=== PATIENT | male | born 1970 | race Caucasian/White ===

== ENCOUNTER → 2019-04-21 08:07 | Outpatient (CLI) | payer OTHER, SELFPAY | PROVIDERS: Visit Provider Orthopaedic Surgery | DX: M17.11 Unilateral primary osteoarthritis, right knee (principal); Z01.818 Encounter for other preprocedural examination; Z01.812 Encounter for preprocedural laboratory examination | CPT/HCPCS: 93005; 93010 ==

== ENCOUNTER 2019-05-02 11:38 | Inpatient (IN) | payer OTHER, SELFPAY ==
[2019-04-19 11:35] VITALS: BMI 40.1
[2019-04-24 15:10] VITALS: BMI 40.1
[2019-05-02] VITALS (13 sets, daily range): BP systolic 88–178; BP diastolic 40–108; PULSE 56–80; RESP 8–20; TEMP 36.2–37.6; O2SAT 95–100; BMI 40.1
--- NOTE | 2019-05-02 06:00 | DI.RAD.S_ITS ---
PROCEDURE: XR KNEE RT 1TO2V INDICATIONS: post op right TKA TECHNIQUE: 2 view(s) of the knee acquired. COMPARISON: None. FINDINGS: Bones: Patient is status post knee joint arthroplasty. Hardware components are in expected positions. Visualized bony structures are intact. Soft tissues: Overlying postoperative changes are noted. IMPRESSION: Post right total knee arthroplasty changes with anatomic right knee alignment. Dictated by: Gautam Mendoza M.D. on 05/02/2019 at 16:56 Approved by: Gautam Mendoza M.D. on 05/02/2019 at 16:56
--- NOTE | 2019-05-02 11:53 | PM.PREOP ---
Pre-operative Note Interval Note History & Physical reviewed/Exam performed by Physician: Yes Changes to H&P: No
--- NOTE | 2019-05-02 11:54 | P.OP_ITS ---
Operative Date/Time/Diagnoses Date of procedure: 05/02/19 Time of procedure: 15:08 Pre-op diagnosis: Severe right knee osteoarthritis Status post right knee ACL reconstruction Post-op diagnosis: same Procedure & Clinicians Procedure: Right total knee arthroplasty Hardware removal right knee Same procedure as scheduled: Yes Indications: The patient presents today for total knee arthroplasty after failure of conservative treatment. The nature of the procedure including the risks and benefits, alternatives, postoperative course and expected outcome were discussed and all questions answered. Consent was obtained. Operative site confirmed and marked. Surgeon: Gonsalo Cole Psychosocial Rehabilitation Counselor: Sai Rojo Anesthesia Type: Spinal and Local Operative Notes Closure Type: primary Specimen(s): none sent Prosthetic devices, grafts, tissues, transplants, or devices: Schmidt [employer] Nephew Lynnette BCS: 7 femoral component, 6 tibial component, 9 mm BCS polyethylene tray and 35 x 9 mm round patella Applied: implant(s) Estimated Blood Loss (mL): 75 Blood products transfused: none Tourniquet time (min): 40 Procedure in detail: The patient was taken to the operative suite and placed under spinal anesthesia. The patient was given prophylactic antibiotics prior to surgery. The patient was also given tranexamic acid, 1 g, just prior to surgery for postoperative hemostasis. The lateral knee was prepped and the joint injected with 20 mL of 1% Lidocaine with epinephrine. The knee was then prepped and draped in usual sterile fashion. The leg was exsanguinated with an Esmarch dressing and the tourniquet raised to 250 torr. A 15 cm anterior incision was made incorporating the previous ACL incision. Next a medial trivector arthrotomy was made. The extensor mechanism was marked to ensure accurate repair. Initial exposing dissection was carried out medially and laterally. The tibial interference screw was prominent and was removed. The knee was then extended and the patellar thickness was measured and a cut made removing approximately 9 mm of bone. The patella was then sized and drilled. Some excess lateral bone was excised and the patellofemoral ligament released. The knee was then flexed and the intramedullary femoral guide piotr placed. The distal femoral cut was made in 6 ? of valgus at the + 0 position. The extra medullary tibial alignment piotr was then placed along the anatomic axis of the tibia approximating the normal slope. The guide was set to remove approximately 6-7 mm from the less affected [lateral] side. The proximal tibial cut was then made with an oscillating saw. Flexion and extension gaps were checked. Another 2 mm was resected from the tibia. The femoral size was measured and the appropriate cutting block was then placed and the anterior, posterior and sharla mfer cuts made. All meniscus and bony debris was then removed. Flexion extension gaps were checked. The knee was mildly tight laterally. The lateral capsule was released using a pie crust technique with a 15 blade.. The soft tissues were then injected with a combination of 20 mL of half percent Marcaine with epinephrine and 20 mL of Exparel. The trial components were then placed. The knee went into full extension and flexion beyond 120?. There was excellent medial- lateral balance throughout motion. Patellar tracking was excellent. The trial components were removed and the knee was cleansed with Pulsavac irrigation and dried. The final components were cemented in with high viscosity vacuum mixed bone cement with antibiotics. The knee was held in extension and the patellar clamp until the cement had adequately cured. The knee was irrigated and inspected for any further debris. The knee was then irrigated with dilute Betadine solution. The extensor mechanism was closed with 5 interrupted #1 Vicryl sutures in 90 degrees of flexion. The joint was then injected with a combination of 1 g of tranexamic acid and 20 mL of quarter percent Marcaine with epinephrine. The subcutaneous tissue was closed with 2-0 Vicryl. The skin was closed with kenya and surgical adhesive. An Aquacell dressing and Juventino wrap were then applied. The patient tolerated the procedure well and was returned to recovery room in good condition. Complications: none Condition: stable Disposition: PACU Plan for aftercare: [facility] protocol for total knee arthroplasty.
[2019-05-02] MEDS: LACTATED RINGERS 1,000 ML 42 ML IV ×2 (12:08→13:53)
[2019-05-02] MEDS: CELECOXIB 200 MG CAPSULE PO (12:33)
[2019-05-02] MEDS: PREGABALIN 75 MG CAPSULE PO (12:33)
[2019-05-02] MEDS: ACETAMINOPHEN 325 MG TABLET 975 MG PO ×3 (12:33→20:16)
--- NOTE | 2019-05-02 12:34 | SUR.PREOP ---
Called pharmacy ([facility]) to check regarding melocam allergy and celebrex order; He deferred to the surgeon. Surgeon ordered to give medication.
[2019-05-02] MEDS: CEFAZOLIN 2 GM/100 ML FROZ.PIGGY IV ×2 (13:06→20:12)
[2019-05-02] MEDS: TRANEXAMIC ACID 1,000 MG VIAL 2000 MG INJ ×2 (13:25→13:55)
--- NOTE | 2019-05-02 13:48 | SUR.OPER ---
Supine on padded OR bed. Pillow under head, arms secured on padded armboards <90 degree abduction. Safety belt across torso. Non-operative leg secured with tape over blanket over lower leg. Operative leg secured in DeMayo/Gómez positioner. Foam padded brace at thigh of operative leg.
[2019-05-02] MEDS: BUPIVACAINE LIPOSOME 266 MG/20 ML VIAL INJ (13:55)
[2019-05-02] MEDS: BUPIVACAINE 0.25% W/ EPI 30 ML VIAL 60 ML INJ (13:56)
[2019-05-02] MEDS: POVIDONE-IODINE 15 ML, SODIUM CHLORIDE 0.9% 250 ML TOP (13:56)
[2019-05-02] MEDS: LIDOCAINE 1% W/EPI INJ 20 ML INJ (13:57)
[2019-05-02] MEDS: LACTATED RINGERS 1,000 ML 125 ML IV (16:30)
[2019-05-02] MEDS: HYDROMORPHONE 0.5 MG INJ IV ×5 (16:35→23:04)
[2019-05-02] MEDS: OXYCODONE IR 5 MG TABLET PO (16:40)
[2019-05-02] MEDS: CYCLOBENZAPRINE 10 MG TABLET PO ×2 (17:00→20:17)
[2019-05-02] MEDS: OXYCODONE IR 10 MG TABLET PO ×2 (17:40→20:05)
[2019-05-02] MEDS: ASPIRIN EC 81 MG TABLET PO (20:17)
[2019-05-02] MEDS: diazePAM 5 MG TABLET PO (23:00)
--- NOTE | 2019-05-03 00:06 | PC.NURSE ---
1630- pt arrived to room 221 from PACU vis bed. A/O x 3 , Right knee aquacell/kraig wrap CDI, ice pack to knee and elevated. Pain 10/10 medicated with dilaudid 0.5mg IVP and percolone 5mg PO. 100%RA, LS clear denies SOB. BT+ denies nausea. LFA LR @ 125 infusing. Pt reports pain meds are not enough and rates pain 9/10. dr Tilley called, new orders oxycodone 10mg one time now and Q-3hr PRN, Vistaril Q-6hr PRN. Girlfriend Candy rooming in. 173- dilaudid 0.5mg IV, oxycodone 10mg PO, and Flexaril 10mg given for pain 8-9/10. 1829- dilaudid 0.5mg IV given for pain 9/10. 1844- zofran given for nausea 1944- Oxycodone 10mg PO given for pain 8/10. 2019- dilaudid 0.5mg given for pain 8/10. called Dr. Tilley again, informed of uncontrolled pain and HTN, Pt BP remaining in the 160's-170's/90's-100's. Orders to continue monitor BP, and orders for Oxycontin 10mg BID, and Valium 5mg PO for spasms and anxiety. Using urinal indep.
[2019-05-03] MEDS: OXYCODONE IR 10 MG TABLET PO ×7 (00:26→23:59)
[2019-05-03] MEDS: LACTATED RINGERS 1,000 ML 125 ML IV (00:27)
--- NOTE | 2019-05-03 01:00 | PC.NURSE ---
Assumed care of pt at 2300. Pt resting in bed. At 2330 Pt reports pain level decreased to 5/10. No oxycontin 10 mg available in entire hospital. Oxycodone IR given at 0020. Pt agreeable to plan of assessing pain level frequently; giving oral Oxycodone IR q 3 hrs prn and keep IV dilaudid for break-thru pain. CPOX remains on to monitor sats. Sats 97% RA. Drsg c/d/i. Legs elevated; Ice packs to knee. Refused SCD's. CMS+. Using urinal to void. IVF to piv. Denies nausea. BP remains elevated. Per evening shift RN, curtains and draperies salesperson provider notified of elevated BP with no new orders. Significant other rooming in sleeping on sofa. Bed alarm on. Pt verbalized he will call for needs.
[2019-05-03 03:06] VITALS: BP 148/83; PULSE 71; RESP 18; TEMP 37.2; O2SAT 98
[2019-05-03] MEDS: CEFAZOLIN 2 GM/100 ML FROZ.PIGGY IV (05:35)
[2019-05-03] MEDS: HYDROMORPHONE 0.5 MG INJ IV ×3 (07:44→16:35)
--- NOTE | 2019-05-03 07:44 | PM.PNPO.1 ---
Subjective Date Patient Seen: 05/03/19 Time Patient Seen: 07:44 Interval history: Pain has been severe over night. Denies fever chills. No nausea vomiting. Has not been out of bed to use the bathroom. He has been able to urinate using the bedside urinal. Exam Vital Signs (past 8 hours): - 05/02/19 23:50 05/03/19 03:06 Temperature 99.6 F 98.9 F Pulse Rate 80 71 Respiratory Rate 18 18 Blood Pressure 157/102 H 148/83 H Pulse Oximetry 95 98 Fraction of Inspired Oxygen 21 Oxygen Delivery Method Room Air Oxygen Flow Rate 0 Narrative Exam Narrative: 48-year-old male resting comfortably in bed in no apparent distress. Dressing is clean, dry and intact. Right lower extremity is warm and dry. Motor function is intact distally. Sensation grossly intact to light touch. Assessment & Plan Post-op Postoperative Procedures Operation Date: 05/02/19 14:00 Actual Procedures Side Surgeon p Total Knee Arthroplasty with hardware removal Right Gonsalo Cole MD Patient progressing as expected status post right total knee arthroplasty with hardware removal. Mobilize with physical therapy. Continue work on pain control. Possible discharge home later today likely tomorrow. Quality VTE Deep Vein Thrombosis/Pulmonary Embolism Present on Admission: No
[2019-05-03 08:00] VITALS: BP 141/94; PULSE 70; RESP 16; TEMP 36.8; O2SAT 96
[2019-05-03] MEDS: DICLOFENAC 50 MG DR TABLET 100 MG PO (08:21)
[2019-05-03] MEDS: ASPIRIN EC 81 MG TABLET PO ×2 (08:21→20:22)
[2019-05-03] MEDS: CYCLOBENZAPRINE 10 MG TABLET PO ×2 (08:21→15:09)
[2019-05-03] MEDS: ACETAMINOPHEN 325 MG TABLET 975 MG PO ×3 (08:21→20:21)
--- NOTE | 2019-05-03 08:52 | CM.IDA ---
Addendum entered by NITZA Raygoza 05/03/19 08:59: Of Note: Pt is 5'11 292 pounds, notes indicate pt was much heavier w/140# weight loss Original Note: Initial DCP Assessment Note: Pt is a 48 yo male, resident of [place], now POD#1 from Rt knee surgery w/ Dr Coel. PCP: Unknown Payer: L+I Reviewed chart. Therapy eval pending today, though pt has prepared for return home to parent's house for one week w/family to assist as needed. According to review, pt will likely require an addtl. night in the hospital for pain management and skilled therapies. No needs expected from DC planning team although will remain available in case this changes. NITZA Raygoza Discharge Planning/Care Management CM Discharge Assessment Start: 05/03/19 08:49 Freq: Status: Active Protocol: Document 05/03/19 08:49 VALDEZ (Rec: 05/03/19 08:52 VALDEZ [email or web address]) Discharge Planning Assessment Assigned Student Ministry Pastor NITZA Fuentes DPOA/Assigned Designee Name Candy Darrel, partner Contact Information [phone] Advance Directives? No History Provided By Patient Family Member Medical Record Prior Living Arrangements RV Household Members significant other Type of transporation used prior to Drives own vehicle admit Independent with ADL's Yes Is patient alert and oriented? Yes Barriers to Discharge No Discharge Plan Home Transportation Arrangement Family Referrals Initiated None needed Review Status In Process
[2019-05-03 09:04] LABS: Hematocrit 40.4 % (41-53); Hemoglobin 13.7 g/dL (13.5-17.5)
--- NOTE | 2019-05-03 09:37 | PT.IIE ---
Addendum entered and electronically signed by Maricarmen Park PT 05/03/19 10:45: correction for assessment. Original Note: Current Diagnoses Unilateral primary osteoarthritis, right knee (05/02/19) Surgery Performed Operation Date: 05/02/19 14:00 Actual Procedures p Total Knee Arthroplasty with hardware removal(Right) - Gonsalo Cole MD Surgical History (Last Updated 04/24/19 @ 16:13 by Misti Mcnulty, RN) History of esophagogastroduodenoscopy (EGD) (Acute) S/P ACL reconstruction (Acute ~1991) Medical History (Last Updated 04/24/19 @ 16:13 by Misti Mcnulty, RN) Colitis (Acute) Diverticulosis (Acute) Hip pain, left (Acute) History of esophageal reflux (Acute) Hypertension (Acute) Osteoarthritis of knee (Acute) Right knee pain (Acute) Physical Therapy Inpatient Evaluation/Re-Eval M1 PT/OT-IP Prior Functional Status Start: 05/03/19 09:14 Freq: NEEDED Status: Active Protocol: Document 05/03/19 08:30 (Rec: 05/03/19 09:37 [email or web address]) Medical Review Prior Functional Status Medical History Reviewed Yes Diet/Fluid Consistency Regular Communication No deficits noted. Able to make needs known Mobility and Gait Independent for all mobility at home and community without using AD. States increased pain for prolonged walking, standing and stair climbing. Used step to pattern to climb stairs Activities of Daily Living and IADL's Independent with all ADLs and IADLs. Social History Household Members significant other Living Arrangements RV Number of Stairs To Enter/Railing? 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 But they will move to parent's house as long as patient needed. Pt stated their house is safety proof since his mother in law had knee and hip replacement. Pt had ACLr approx 20 years ago and reports he has significant pronated feet with foot turned out. M2 PT-IP Current Condition Start: 05/03/19 09:14 Freq: NEEDED Status: Active Protocol: Document 05/03/19 08:30 HH (Rec: 05/03/19 09:37 [email or web address]) Physical Therapy Current Condition Current Condition Evaluation Date 05/03/19 Treatment Diagnosis RTKA, difficulty in walking Onset Date 05/02/19 Weight Bearing Status Weight Bearing Status Weight Bear as Tolerated M3 PT-IP Subjective Start: 05/03/19 09:14 Freq: NEEDED Status: Active Protocol: Document 05/03/19 08:30 HH (Rec: 05/03/19 09:37 [email or web address]) Subjective Physical Therapy Visit Type Type Initial Evaluation Visit Start Time 08:30 Visit Stop Time 09:05 Total Visit Minutes 35 Notes pt's girlfriend at bedside. Per RN, pt has been using urinal for toileting due to severe pain reported. Elevated BP 160s/90s also noted since sx. Number of SPECIAL AGENT [employer] Visits 0 Physical Therapy Visit Comments Patient Comments I want to walk and use the bathroom. Patient Goals To return home with his girlfriend Therapy Pain Assessment Pain When Pain Assessed During Mobility Pain Present Pain Present Pain Reported Location right knee Intensity 7 Scale Used Numeric (1 - 10) Description Acute Pain Behaviors Facial Grimacing Pain Management Techniques Apply Cold Elevation Modification of Treatment Re-positioning Timing of Activity with Medications M4 PT-IP Mobility and Gait Start: 05/03/19 09:14 Freq: NEEDED Status: Active Protocol: Document 05/03/19 08:30 HH (Rec: 05/03/19 09:37 [email or web address]) PT-Bed Mobility Assessment Rolling Type of Rolling Roll to Right Level of Assist Standby Assistance Supine to Sit Supine to Sit Standby Assistance Scooting Scooting to Edge of Bed Standby Assistance PT-Transfer Assessment Sit to and From Stand Sit to and from Stand Minimal Assistance Use of Upper Extremities Equipment Transfer Assistive Device Gait Belt Orthotic/Prosthetic Devices or Brace: No Transfers Transfer Destination Bed Chair Toilet Transfer Technique Stand Step Pivot Transfer Ability Level of Assist Contact Guard Assistance Use of Upper Extremities Comments Mobility Comments BP ramains 140s/80s pre and post mobility. Pt was able to use UEs to lift his RLE to sit at EOB on R side. He overall Required min A for sit to stand, chair transfer. He was able to stand with LLE only for toileting. Cues needed for hand placement on FWW/ chair armrests during transfers. Pt primarily WB through RLE during standing and transfer due to significant pain on L knee. Gait Assessment Gait Gait Assistance Required: Contact Guard Assist Distance (Feet) 35 Able to Maintain Weight Bearing Status Yes During Gait Assistive Devices Assistive Device Gait Belt Front Wheeled Walker Orthotic/Prosthetic Devices or Brace: No Gait Deviations General Gait Pattern Antalgic Decreased Stride Length Decreased Feet Clearance Step-to Gait Wide Based Gait Factors Limiting Gait Function Factors Limiting Gait Function Decreased Activity Tolerance Decreased Strength Limited Range of Motion Pain Poor Balance Poor Safety Awareness Comments Gait Comments Pt amb from EOB to bathroom then out to hallway and returned to bedside chair with FWW CGA. Pt initially WB ~ 20 -40% only on RLE and primarily used B UEs for support for the first 15 feet due to increased pain. But his pain reduced after who was able to increase WB through R knee, R foot clearance and gait speed. Pt states he was able to reach 50-60% WB towards the end of session. Stair Climbing Assessment Comments Stair Climbing Comments did not attempt due to pain PT-Balance Assessment Sitting Balance and Reactions Static Sitting Balance Ability Normal Dynamic Sitting Balance Ability Normal Standing Balance and Reactions Static Standing Balance Ability Good Dynamic Standing Balance Ability Good Device Used FWW M5 PT-IP Objective Assessments Start: 05/03/19 09:14 Freq: NEEDED Status: Active Protocol: Document 05/03/19 08:30 (Rec: 05/03/19 09:37 [email or web address]) Orientation Orientation/Cognition Level of Alertness Alert Orientation Name Age Birthday Month Date Year Day of Week Place Situation Language Function Ability No Deficits Noted Safety Awareness Understands Safety Issues Memory Description No Deficits Noted Gross Range of Motion Upper Extremity ROM Assessment Within Functional Limits Lower Extremity ROM Assessment Right Impaired Impairments 15- 80 degrees AROM Strength Upper Extremity Strength Assessment Within Functional Limits Lower Extremity Strength Assessment Right Impaired Knee 3/5 Coordination Assessment Gross Coordination Gross Coordination WNL Sensation Assessment Sensation Gross Sensation Right LE Impaired Light Touch Impaired Proprioception (Position) Impaired Sensation Description Tingling Pain Muscle Tone Muscle Tone WNL Yes Other Assessments Other Other Assessments Pt has severe B pronated feet with feet return checker which increases mechanical pressure on medial compartment of B knees. M6 PT-IP Treatment Start: 05/03/19 09:14 Freq: NEEDED Status: Active Protocol: Document 05/03/19 08:30 HH (Rec: 05/03/19 09:37 [email or web address]) Physical Therapy Treatment Exercises Exercises Gluteal Sets Quad Sets Heel Slides Education Education Provided Precautions Weight Bearing Status Post-Op Packet Safety Other Treatments Other Treatment Performed standing R TKE with FWW M7 PT-IP Assessment and Plan Start: 05/03/19 09:14 Freq: NEEDED Status: Active Protocol: Document 05/03/19 08:30 HH (Rec: 05/03/19 09:37 [email or web address]) PT Summary Assessment and Plan Potential Rehabilitation Potential Excellent Status of Condition at Evaluation Stable Summary Impairments Pain ROM Strength Balance Bed Mobility Transfers Gait Activity Tolerance Assessment Summary Pt is low complexity with POD #2 R TKA. Pt currently needs min A for sit to stand and overall transfers due to increased pain significantly during WB activities on RLE. Pt states he could WB on his R knee approx 50-60 % at this point and primarily uses B UEs for support on FWW. Pt currently is not safe to go home yet until his pain gets more controlled and able to clear rehab goals. Recommended his girlfriend to bring in FWW/ QC from home for adjustment prior to d/c. Goals Bed Mobility Goal Independent Transfer Goal Independent Front Wheeled Walker Gait Goal Independent Front Wheel Walker Gait Distance 200 Other Goals climb 1 step without railings Days to Meet Goals 5 Frequency of Treatment Frequency Of Treatment Twice a Day Treatment Plan Physical Therapy Treatment Plan Bed Mobility Training Transfer Training Gait Training Therapeutic Exercise Balance Retraining Post Op Education Discharge Planning Hot or Cold Pack Neuromuscular Re-ed Other Recommendations and Next Treatment gait training as lo Focus postural education with R TKE step climbing if possible Recommendations To Nursing Amount of Assist Needed 1 Person Assist Discharge Recommendations PT Discharge Recommendations Home with Assistance Outpatient PT
--- NOTE | 2019-05-03 10:02 | PC.NURSE ---
Patient in a lot of pain again at this time, tearful, laying in bed. SENIOR TECHNICAL SUPPORT ENGINEER had assisted with new ice packs and repositioning after therapy. Patient had refused IV and requested it was removed during PT session as it was in his wrist it has to come out, I am not able to use the walker without it poking and pinching. Patient now refuses replacement of IV in new spot, encouraged patient to keep me updated if he changes his mind. Call light within reach.
[2019-05-03] MEDS: OXYCODONE ER 10 MG TAB PO ×2 (10:25→20:27)
--- NOTE | 2019-05-03 10:47 | PT.IIE ---
Current Diagnoses Unilateral primary osteoarthritis, right knee (05/02/19) Surgery Performed Operation Date: 05/02/19 14:00 Actual Procedures p Total Knee Arthroplasty with hardware removal(Right) - Gonsalo Cole MD Surgical History (Last Updated 04/24/19 @ 16:13 by Misti Mcnulty, RN) History of esophagogastroduodenoscopy (EGD) (Acute) S/P ACL reconstruction (Acute ~1991) Medical History (Last Updated 04/24/19 @ 16:13 by Misti Mcnulty RN) Colitis (Acute) Diverticulosis (Acute) Hip pain, left (Acute) History of esophageal reflux (Acute) Hypertension (Acute) Osteoarthritis of knee (Acute) Right knee pain (Acute) Physical Therapy Inpatient Evaluation/Re-Eval M1 PT/OT-IP Prior Functional Status Start: 05/03/19 09:14 Freq: NEEDED Status: Active Protocol: Document 05/03/19 08:30 HH (Rec: 05/03/19 09:37 [email or web address]) Medical Review Prior Functional Status Medical History Reviewed Yes Diet/Fluid Consistency Regular Communication No deficits noted. Able to make needs known Mobility and Gait Independent for all mobility at home and community without using AD. States increased pain for prolonged walking, standing and stair climbing. Used step to pattern to climb stairs Activities of Daily Living and IADL's Independent with all ADLs and IADLs. Social History Household Members significant other Living Arrangements RV Number of Stairs To Enter/Railing? 4 PANFILO with railings pt has prepared for return home to girlfriend's parent's house for one week or more w/ family to assist as needed, 1STE Home Environment High Toilet Walk in Shower Home Equipment Front Wheel Walker Quad Cane Shower Seat with Backrest Hand Held Shower Grab Bars In Shower Employment Status Application Spec Employed Additional Social History Comment Pt lives with his girlfriend in a RV prior to sx. But they will move to parent's house as long as patient needed. Pt stated their house is safety proof since his mother in law had knee and hip replacement. Pt had ACLr approx 20 years ago and reports he has significant pronated feet with foot turned out. M2 PT-IP Current Condition Start: 05/03/19 09:14 Freq: NEEDED Status: Active Protocol: Document 05/03/19 08:30 HH (Rec: 05/03/19 09:37 [email or web address]) Physical Therapy Current Condition Current Condition Evaluation Date 05/03/19 Treatment Diagnosis RTKA, difficulty in walking Onset Date 05/02/19 Weight Bearing Status Weight Bearing Status Weight Bear as Tolerated M3 PT-IP Subjective Start: 05/03/19 09:14 Freq: NEEDED Status: Active Protocol: Document 05/03/19 08:30 HH (Rec: 05/03/19 09:37 [email or web address]) Subjective Physical Therapy Visit Type Type Initial Evaluation Visit Start Time 08:30 Visit Stop Time 09:05 Total Visit Minutes 35 Notes pt's girlfriend at bedside. Per RN, pt has been using urinal for toileting due to severe pain reported. Elevated BP 160s/90s also noted since sx. 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 Patient Goals To return home with his girlfriend Therapy Pain Assessment Pain When Pain Assessed During Mobility Pain Present Pain Present Pain Reported Location right knee Intensity 7 Scale Used Numeric (1 - 10) Description Acute Pain Behaviors Facial Grimacing Pain Management Techniques Apply Cold Elevation Modification of Treatment Re-positioning Timing of Activity with Medications M4 PT-IP Mobility and Gait Start: 05/03/19 09:14 Freq: NEEDED Status: Active Protocol: Document 05/03/19 08:30 HH (Rec: 05/03/19 09:37 [email or web address]) PT-Bed Mobility Assessment Rolling Type of Rolling Roll to Right Level of Assist Standby Assistance Supine to Sit Supine to Sit Standby Assistance Scooting Scooting to Edge of Bed Standby Assistance PT-Transfer Assessment Sit to and From Stand Sit to and from Stand Minimal Assistance Use of Upper Extremities Equipment Transfer Assistive Device Gait Belt Orthotic/Prosthetic Devices or Brace: No Transfers Transfer Destination Bed Chair Toilet Transfer Technique Stand Step Pivot Transfer Ability Level of Assist Contact Guard Assistance Use of Upper Extremities Comments Mobility Comments BP ramains 140s/80s pre and post mobility. Pt was able to use UEs to lift his RLE to sit at EOB on R side. He overall Required min A for sit to stand, chair transfer. He was able to stand with LLE only for toileting. Cues needed for hand placement on FWW/ chair armrests during transfers. Pt primarily WB through RLE during standing and transfer due to significant pain on L knee. Gait Assessment Gait Gait Assistance Required: Contact Guard Assist Distance (Feet) 35 Able to Maintain Weight Bearing Status Yes During Gait Assistive Devices Assistive Device Gait Belt Front Wheeled Walker Orthotic/Prosthetic Devices or Brace: No Gait Deviations General Gait Pattern Antalgic Decreased Stride Length Decreased Feet Clearance Step-to Gait Wide Based Gait Factors Limiting Gait Function Factors Limiting Gait Function Decreased Activity Tolerance Decreased Strength Limited Range of Motion Pain Poor Balance Poor Safety Awareness Comments Gait Comments Pt amb from EOB to bathroom then out to hallway and returned to bedside chair with FWW CGA. Pt initially WB ~ 20 -40% only on RLE and primarily used B UEs for support for the first 15 feet due to increased pain. But his pain reduced after who was able to increase WB through R knee, R foot clearance and gait speed. Pt states he was able to reach 50-60% WB towards the end of session. Pt also had refused IV and requested it was removed by RN during PT session as it was in his wrist it has to come out, I am not able to use the walker without it poking and pinching . Stair Climbing Assessment Comments Stair Climbing Comments did not attempt due to pain PT-Balance Assessment Sitting Balance and Reactions Static Sitting Balance Ability Normal Dynamic Sitting Balance Ability Normal Standing Balance and Reactions Static Standing Balance Ability Good Dynamic Standing Balance Ability Good Device Used FWW M5 PT-IP Objective Assessments Start: 05/03/19 09:14 Freq: NEEDED Status: Active Protocol: Document 05/03/19 08:30 (Rec: 05/03/19 09:37 [email or web address]) Orientation Orientation/Cognition Level of Alertness Alert Orientation Name Age Birthday Month Date Year Day of Week Place Situation Language Function Ability No Deficits Noted Safety Awareness Understands Safety Issues Memory Description No Deficits Noted Gross Range of Motion Upper Extremity ROM Assessment Within Functional Limits Lower Extremity ROM Assessment Right Impaired Impairments 15- 80 degrees AROM Strength Upper Extremity Strength Assessment Within Functional Limits Lower Extremity Strength Assessment Right Impaired Knee 3/5 Coordination Assessment Gross Coordination Gross Coordination WNL Sensation Assessment Sensation Gross Sensation Right LE Impaired Light Touch Impaired Proprioception (Position) Impaired Sensation Description Tingling Pain Muscle Tone Muscle Tone WNL Yes Other Assessments Other Other Assessments Pt has severe B pronated feet 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 M6 PT-IP Treatment Start: 05/03/19 09:14 Freq: NEEDED Status: Active Protocol: Document 05/03/19 08:30 HH (Rec: 05/03/19 09:37 HH [email or web address]) Physical Therapy Treatment Exercises Exercises Gluteal Sets Quad Sets Heel Slides Education Education Provided Precautions Weight Bearing Status Post-Op Packet Safety Other Treatments Other Treatment Performed standing R TKE with FWW M7 PT-IP Assessment and Plan Start: 05/03/19 09:14 Freq: NEEDED Status: Active Protocol: Document 05/03/19 08:30 HH (Rec: 05/03/19 09:37 HH [email or web address]) PT Summary Assessment and Plan Potential Rehabilitation Potential Excellent Status of Condition at Evaluation Stable Summary Impairments Pain ROM Strength Balance Bed Mobility Transfers Gait Activity Tolerance Assessment Summary Pt is low complexity with POD #2 R TKA. Pt currently needs min A for sit to stand and overall transfers due to increased pain during WB activties on RLE. Pt states he could WB on his R knee approx 50-60 % at this point and primarily uses B UEs for support on FWW. Pt also had refused IV and requested it was removed by RN during PT session as it was in his wrist it has to come out, I am not able to use the walker without it poking and pinching . In conclusion, Pt currently is not safe to go home yet until his pain gets more controlled and able to clear rehab goals. Recommended his girlfriend to bring in FWW/ QC from home for adjustment prior to d/c. Goals Bed Mobility Goal Independent Transfer Goal Independent Front Wheeled Walker Gait Goal Independent Front Wheel Walker Gait Distance 200 Other Goals climb 1 step without railings Days to Meet Goals 5 Frequency of Treatment Frequency Of Treatment Twice a Day Treatment Plan Physical Therapy Treatment Plan Bed Mobility Training Transfer Training Gait Training Therapeutic Exercise Balance Retraining Post Op Education Discharge Planning Hot or Cold Pack Neuromuscular Re-ed Other Recommendations and Next Treatment gait training as lo Focus postural education with R TKE step climbing if possible Recommendations To Nursing Amount of Assist Needed 1 Person Assist Discharge Recommendations PT Discharge Recommendations Home with Assistance Outpatient PT
[2019-05-03 12:37] VITALS: BP 162/98; PULSE 85; RESP 16; TEMP 36.2; O2SAT 98
[2019-05-03 15:20] VITALS: BP 133/69; PULSE 84; RESP 18; TEMP 36.8; O2SAT 95
--- NOTE | 2019-05-03 15:40 | PT.IPTN ---
Current Diagnoses Unilateral primary osteoarthritis, right knee (05/02/19) Surgery Performed Operation Date: 05/02/19 14:00 Actual Procedures p Total Knee Arthroplasty with hardware removal(Right) - Gonsalo Cole MD Physical Therapy Treatment Note M2 PT-IP Current Condition Start: 05/03/19 09:14 Freq: NEEDED Status: Active Protocol: Document 05/03/19 08:30 HH (Rec: 05/03/19 09:37 HH [email or web address]) Physical Therapy Current Condition Current Condition Evaluation Date 05/03/19 Treatment Diagnosis RTKA, difficulty in walking Onset Date 05/02/19 Weight Bearing Status Weight Bearing Status Weight Bear as Tolerated M3 PT-IP Subjective Start: 05/03/19 09:14 Freq: NEEDED Status: Active Protocol: Document 05/03/19 15:40 GGD (Rec: 05/03/19 17:05 GGD [id number]) Subjective Physical Therapy Visit Type Type Treatment Note Visit Start Time 15:00 Visit Stop Time 15:35 Total Visit Minutes 35 Number of INSURANCE CLAIMS EXAMINER Visits 1 Physical Therapy Visit Comments Patient Comments Pt states his knee is sore. Therapy Pain Assessment Pain When Pain Assessed During Mobility Pain Present Pain Present Pain Reported Location right knee Intensity 7 Scale Used Numeric (1 - 10) M4 PT-IP Mobility and Gait Start: 05/03/19 09:14 Freq: NEEDED Status: Active Protocol: Document 05/03/19 15:40 GGD (Rec: 05/03/19 17:05 GGD [id number]) PT-Bed Mobility Assessment Sit to Supine Sit to Supine Standby Assistance Scooting Scooting to Edge of Bed Standby Assistance PT-Transfer Assessment Sit to and From Stand Sit to and from Stand Standby Assistance 1 Person Assistance Use of Upper Extremities Equipment Transfer Assistive Device Gait Belt Transfers Transfer Destination Bed Transfer Ability Level of Assist Contact Guard Assistance Use of Upper Extremities Gait Assessment Gait Gait Assistance Required: Contact Guard Assist Distance (Feet) 70 Able to Maintain Weight Bearing Status Yes During Gait Assistive Devices Assistive Device Gait Belt Front Wheeled Walker Orthotic/Prosthetic Devices or Brace: No Gait Deviations General Gait Pattern Antalgic Decreased Stride Length Decreased Feet Clearance Step-to Gait Wide Based Gait Factors Limiting Gait Function Factors Limiting Gait Function Decreased Activity Tolerance Decreased Strength Limited Range of Motion Pain Poor Balance Poor Safety Awareness M5 PT-IP Objective Assessments Start: 05/03/19 09:14 Freq: NEEDED Status: Active Protocol: Document 05/03/19 08:30 (Rec: 05/03/19 09:37 [email or web address]) Orientation Orientation/Cognition Level of Alertness Alert Orientation Name Age Birthday Month Date Year Day of Week Place Situation Language Function Ability No Deficits Noted Safety Awareness Understands Safety Issues Memory Description No Deficits Noted Gross Range of Motion Upper Extremity ROM Assessment Within Functional Limits Lower Extremity ROM Assessment Right Impaired Impairments 15- 80 degrees AROM Strength Upper Extremity Strength Assessment Within Functional Limits Lower Extremity Strength Assessment Right Impaired Knee 3/5 Coordination Assessment Gross Coordination Gross Coordination WNL Sensation Assessment Sensation Gross Sensation Right LE Impaired Light Touch Impaired Proprioception (Position) Impaired Sensation Description Tingling Pain Muscle Tone Muscle Tone WNL Yes Other Assessments Other Other Assessments 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 M6 PT-IP Treatment Start: 05/03/19 09:14 Freq: NEEDED Status: Active Protocol: Document 05/03/19 15:40 GGD (Rec: 05/03/19 17:05 GGD [id number]) Physical Therapy Treatment Exercises Exercises Ankle Pumps Gluteal Sets Quad Sets Heel Slides Seated Knee Flexion/Extension M7 PT-IP Assessment and Plan Start: 05/03/19 09:14 Freq: NEEDED Status: Active Protocol: Document 05/03/19 15:40 GGD (Rec: 05/03/19 17:05 GGD [id number]) PT Summary Assessment and Plan Summary Assessment Summary Pt was able to progress gait distance. He needed less assist for sit to stand. Pt need cues for increase wbring during gait. Pt needs stair mobility before D/C home. Frequency of Treatment Frequency Of Treatment Twice a Day Treatment Plan Physical Therapy Treatment Plan Bed Mobility Training Transfer Training Gait Training Therapeutic Exercise Balance Retraining Post Op Education Discharge Planning Hot or Cold Pack Neuromuscular Re-ed Recommendations To Nursing Amount of Assist Needed 1 Person Assist Discharge Recommendations PT Discharge Recommendations Home with Assistance Outpatient PT
[2019-05-03] MEDS: diazePAM 5 MG TABLET PO (16:55)
--- NOTE | 2019-05-03 17:20 | PC.NURSE ---
Addendum entered by Day Molina R.N. 05/03/19 17:34: 1630- PT requesting didlaudid 0.5 IV and Valuim to get some sleep. Original Note: 1545- Pt requesting oxycodone 10mg, pain 7/10 right knee. 95%RA, LS clear denies SOB. BP much better today, 133/69. Up to chair, PT x2. 1PA FWW to BRP to void. right knee aquacell/kraig CDI. LAC SL.
[2019-05-03 20:22] VITALS: BP 139/81; PULSE 78; RESP 18; TEMP 36.8; O2SAT 95
[2019-05-03 23:40] VITALS: BP 142/80; PULSE 75; RESP 19; TEMP 36.9; O2SAT 99
[2019-05-04] MEDS: diazePAM 5 MG TABLET PO (01:25)
[2019-05-04] MEDS: hydrOXYzine pamoate 25 MG CAPSULE PO (03:14)
[2019-05-04] MEDS: OXYCODONE IR 10 MG TABLET PO ×4 (03:14→12:37)
[2019-05-04] MEDS: HYDROMORPHONE 0.5 MG INJ IV (04:28)
[2019-05-04 04:50] VITALS: BP 154/96; PULSE 86; RESP 18; TEMP 36.9; O2SAT 99
[2019-05-04 07:40] VITALS: BP 153/94; PULSE 87; RESP 16; TEMP 37.2; O2SAT 98
[2019-05-04] MEDS: OXYCODONE ER 10 MG TAB PO (09:00)
[2019-05-04] MEDS: ASPIRIN EC 81 MG TABLET PO (09:00)
[2019-05-04] MEDS: ACETAMINOPHEN 325 MG TABLET 975 MG PO (09:00)
[2019-05-04] MEDS: DICLOFENAC 50 MG DR TABLET 100 MG PO (09:01)
[2019-05-04] MEDS: CYCLOBENZAPRINE 10 MG TABLET PO (09:01)
--- NOTE | 2019-05-04 09:32 | PT.IPTN ---
Current Diagnoses Unilateral primary osteoarthritis, right knee (05/02/19) Surgery Performed Operation Date: 05/02/19 14:00 Actual Procedures p Total Knee Arthroplasty with hardware removal(Right) - Gonsalo Cole MD Physical Therapy Treatment Note M2 PT-IP Current Condition Start: 05/03/19 09:14 Freq: NEEDED Status: Active Protocol: Document 05/03/19 08:30 HH (Rec: 05/03/19 09:37 HH [email or web address]) Physical Therapy Current Condition Current Condition Evaluation Date 05/03/19 Treatment Diagnosis RTKA, difficulty in walking Onset Date 05/02/19 Weight Bearing Status Weight Bearing Status Weight Bear as Tolerated M3 PT-IP Subjective Start: 05/03/19 09:14 Freq: NEEDED Status: Active Protocol: Document 05/04/19 09:00 LJ (Rec: 05/04/19 09:32 LJ [email or web address]) Subjective Physical Therapy Visit Type Type Treatment Note Visit Start Time 09:00 Visit Stop Time 09:19 Total Visit Minutes 19 Notes RN in room administering pain medication. Pt states he wants to get out of bed. States the pain is worse when leg is suspended for the time it takes to swing his right leg out of the bed. Pt very motivated to go home. M4 PT-IP Mobility and Gait Start: 05/03/19 09:14 Freq: NEEDED Status: Active Protocol: Document 05/04/19 09:00 LJ (Rec: 05/04/19 09:32 LJ [email or web address]) PT-Bed Mobility Assessment Scooting Scooting to Edge of Bed Standby Assistance PT-Transfer Assessment Sit to and From Stand Sit to and from Stand Standby Assistance 1 Person Assistance Use of Upper Extremities Equipment Transfer Assistive Device Gait Belt Front Wheeled Walker Transfers Transfer Destination Bed Transfer Ability Level of Assist Standby Assistance Comments Mobility Comments Pt SBA for all bed mobility and transfers into and out of bed. Offered assist with moving his R LE into bed but he was able to lift it on his own. Pt able to reposition himself comfortable back into bed. Gait Assessment Gait Gait Assistance Required: Standby Assistance Distance (Feet) 160 Able to Maintain Weight Bearing Status Yes During Gait Assistive Devices Assistive Device Gait Belt Front Wheeled Walker Gait Deviations General Gait Pattern Antalgic Decreased Stride Length Decreased Feet Clearance Step-to Gait Wide Based Gait Factors Limiting Gait Function Factors Limiting Gait Function Decreased Activity Tolerance Decreased Strength Limited Range of Motion Pain Poor Balance Poor Safety Awareness Comments Gait Comments Pt ambulatesd SBA in hallway with increased wt bearing on RLE. One incident of sharp pain which caused him to take a few second rest. Required cuing for posture and evening out gait as tolerated. Pt reports the :step: to get into the cabin where he will be staying in only 2 and he refused to attempt stairs because there were no stairs to get into or move around in the house. Stair Climbing Assessment Comments Stair Climbing Comments No stairs to get into cabin where he will be staying. Pt reports 2 landing. M5 PT-IP Objective Assessments Start: 05/03/19 09:14 Freq: NEEDED Status: Active Protocol: Document 05/03/19 08:30 HH (Rec: 05/03/19 09:37 HH [email or web address]) Orientation Orientation/Cognition Level of Alertness Alert Orientation Name Age Birthday Month Date Year Day of Week Place Situation Language Function Ability No Deficits Noted Safety Awareness Understands Safety Issues Memory Description No Deficits Noted Gross Range of Motion Upper Extremity ROM Assessment Within Functional Limits Lower Extremity ROM Assessment Right Impaired Impairments 15- 80 degrees AROM Strength Upper Extremity Strength Assessment Within Functional Limits Lower Extremity Strength Assessment Right Impaired Knee 3/5 Coordination Assessment Gross Coordination Gross Coordination WNL Sensation Assessment Sensation Gross Sensation Right LE Impaired Light Touch Impaired Proprioception (Position) Impaired Sensation Description Tingling Pain Muscle Tone Muscle Tone WNL Yes Other Assessments Other Other Assessments Pt 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 M6 PT-IP Treatment Start: 05/03/19 09:14 Freq: NEEDED Status: Active Protocol: Document 05/03/19 15:40 GGD (Rec: 05/03/19 17:05 GGD [id number]) Physical Therapy Treatment Exercises Exercises Ankle Pumps Gluteal Sets Quad Sets Heel Slides Seated Knee Flexion/Extension M7 PT-IP Assessment and Plan Start: 05/03/19 09:14 Freq: NEEDED Status: Active Protocol: Document 05/04/19 09:00 LJ (Rec: 05/04/19 09:32 LJ [email or web address]) PT Summary Assessment and Plan Summary Assessment Summary Pt with reduced pain and increased mobility able to ambulate in hallway 160' w/o LOB or increase in pain. Pt is safe to d/c home with assistance. Increase gait distance this afternoon. Goals Bed Mobility Goal Independent Transfer Goal Independent Front Wheeled Walker Gait Goal Independent Front Wheel Walker Gait Distance 200 Days to Meet Goals 5 Frequency of Treatment Frequency Of Treatment Twice a Day Treatment Plan Physical Therapy Treatment Plan Bed Mobility Training Transfer Training Gait Training Therapeutic Exercise Balance Retraining Post Op Education Discharge Planning Hot or Cold Pack Neuromuscular Re-ed Recommendations To Nursing Amount of Assist Needed Standby Assistance
--- NOTE | 2019-05-04 10:13 | PC.NURSE ---
Addendum entered by Darlyn Humphrey R.N. 05/04/19 13:06: DC - after lunch, given 10mg po oxycodone IR, scripts provided to spouse who took down to family pharmacy to fill, belongings gathered, including cell phone and food counter worker, own cane and fww, glasses, reviewed dc instructions with pt and spouse, paperwork provided, tsf to wc and escorted by towboat pilot to family car. Original Note: AM NOTE - alert, states doesn't sleep well here at night due r knee discomfort, earlier oxycodone providing relief w/pain 5 on scale 0/10, kraig wrap over aquacell cdi, ra 97%, hr 96, denies nausea, discussed pain mgt, given oxycontin with breakfast, up with phys therapy and ambul using fww into hallway, when ret to room, states pain incr 6-7 on scale 0/10 and given oxycodone 10mg IR, spouse at bedside and pt would like to dc home today.
[2019-05-04 11:20] VITALS: BP 149/80; PULSE 111; RESP 16; TEMP 36.9; O2SAT 98
--- NOTE | 2019-05-04 11:49 | PM.DS.1 ---
History of Present Illness Date Patient Seen: 05/04/19 Time Patient Seen: 11:49 Chief complaint: [id number] RT TKA Narrative: Please see HPI in chart Discharge Providers Date of admission: 05/02/19 11:38 Discharge Date: 05/04/19 Consults: 05/02/19 16:30 Consult to Discharge Planning Routine Comment: Consult to Physical Therapy Evaluate & Treat Comment: Physician Instructions: postop TKA protocol Consult to Respiratory Therapy Evaluate & Treat Comment: Physician Instructions: Evaluate and treat Discharge provider: Katia Barrett PA-C Summary Discharge Diagnosis: s/p right total knee arthroplasty Hospital Course: The patient presented for total knee arthroplasty after failure of conservative treatment. The nature of the procedure including the risks and benefits, alternatives, postoperative course and expected outcome were discussed and all questions answered. Consent was obtained. Operative site was confirmed and marked. Patient was taken to the operating room for a right total knee arthroplasty with no complications. POD#1 he had some difficulty with pain control which has somewhat improved today. He has mobilized well with PT. Voiding independently and tolerating a diet. He was given supply of medications at preoperative visit. Scripts for Oxycontin and Flexeril given in addition at discharge today. He has a good support system at home and is scheduled for outpatient follow up. Status at Discharge Cognitive/behavioral status at discharge: oriented Functional status at discharge: uses cane/walker Overall status at discharge: patient is progressing back to baseline Exam Vital Signs (past 8 hours): - 05/04/19 04:50 05/04/19 07:40 05/04/19 11:20 Temperature 98.5 F 98.9 F 98.5 F Pulse Rate 86 87 111 H Respiratory Rate 18 16 16 Blood Pressure 154/96 H 153/94 H 149/80 H Pulse Oximetry 99 98 98 Fraction of Inspired Oxygen 21 Oxygen Delivery Method Room Air Oxygen Flow Rate 0 Narrative Exam Narrative: 48 year old male resting comfortably in bed, in no acute distress. Alert and oriented. Dressing in place over right knee is clean, dry, and intact. Neurovascularly intact in distal extremity with soft, compressible calves bilaterally. Objective Labs Result Diagrams: 05/03/19 08:20 Discharge Plan Discharge Plan Patient Disposition: Home Discharge Med Rec/Prescriptions Prescriptions: New cyclobenzaprine 10 mg Tablet 10 mg PO TID PRN (Reason: Muscle Spasm) Qty: 30 RF: 0 acetaminophen 325 mg Tablet 975 mg PO TID Qty: 60 RF: 0 aspirin 81 mg Tablet,Delayed Release (Dr/Ec) 81 mg PO BID Qty: 60 RF: 0 oxycodone [OxyContin] 10 mg Tablet,Oral Only,Ext.Rel.12 Hr 10 mg PO BID Qty: 20 RF: 0 Discontinued cyclobenzaprine 10 mg Tablet 10 mg PO TID PRN (Reason: Muscle Spasm) RF: 0 diclofenac sodium 100 mg Tablet Extended Release 24 Hr 100 mg PO DAILY RF: 0 hydrocodone-acetaminophen [Vicodin HP] 10-300 mg Tablet 1 tab PO Q12H PRN (Reason: Pain) RF: 0 Follow up/Referrals: Gonsalo Cole MD [Physician] - Provider Discharge Instructions Diet: Diet as Tolerated Activity: Weight bear as tolerated. Walker or cane for stability. Recommend frequent short walks and ankle pumps. Cold/Heat Therapy: Ice packs as needed Skin/Wound/Dressing Care Report to your healthcare provider any signs of infection, such as:: chills, fever, unusual drainage and unusual redness Dressing: Juventino wrap may be removed tomorrow. Leave Aquacel dressing in place. Visit Report/Discharge Packet Instructions: DI for Knee Replacement, Oxycodone, Slow Release (By mouth) Discharge Data Attending Provider: Gonsalo Cole Admit Date/Time: 05/02/19 11:38 Quality VTE Deep Vein Thrombosis/Pulmonary Embolism Present on Admission: No
== END 2019-05-04 12:30 | disposition home or self-care (01) | DRG 302 ==
PROVIDERS: Admitting Provider Orthopaedic Surgery; Visit Provider Orthopaedic Surgery
PROC: 0SRC0JZ Replacement of Right Knee Joint with Synthetic Substitute, Open Approach (ICD-10-PCS; CPT 27447; principal; 2019-05-02 14:00)
DX: M17.11 Unilateral primary osteoarthritis, right knee (principal); E66.9 Obesity, unspecified; Z68.41 Body mass index [BMI] 40.0-44.9, adult; Y99.0 Civilian activity done for income or pay
CPT/HCPCS: 36415; 73560; 85014; 85018; 94762; 97110; 97116; 97161; 97530; C1776; C9290; J0690; J1100; J1170; J2250; J2405; J2704; J3010

== ENCOUNTER 2020-02-04 10:42 | Inpatient (IN) | payer OTHER, SELFPAY ==
[2019-05-02 16:30] VITALS: BMI 40.1
[2020-01-31 12:34] VITALS: BMI 38.0
[2020-02-04] VITALS (14 sets, daily range): BP systolic 119–154; BP diastolic 8–99; PULSE 67–89; RESP 12–20; TEMP 36.6–37; O2SAT 92–99; BMI 38.0
--- NOTE | 2020-02-04 | DI.RAD.S_ITS ---
PROCEDURE: XR KNEE RT 1TO2V INDICATIONS: TOTAL RIGHT KNEE TECHNIQUE: 2 view(s) of the knee acquired. COMPARISON: [facility] Orthopedic [facility], CR, XR KNEE ARTHRITIC SERIES RT, 01/03/2020, 14:44. [place], [place], NM BONE SCAN 3 PHASE, 01/14/2020, 11:15. [facility], CR, XR KNEE RT 1TO2V, 05/02/2019, 15:49. FINDINGS: Bones: Patient is status post knee joint arthroplasty. The metallic component previously present at the femoral component of the right knee arthroplasty remains. The metallic component of the tibial portion of the right knee arthroplasty is now absent. Hardware components are in expected positions. Visualized bony structures are intact. Soft tissues: Overlying postoperative changes are noted. IMPRESSION: Postoperative changes as discussed, femoral component remains metallic, no metallic component now is seen over the tibial area of the prior tibial component of the right knee arthroplasty. Dictated by: Devang Mixon M.D. on 02/04/2020 at 18:10 Approved by: Devang Mixon M.D. on 02/04/2020 at 18:14
[2020-02-04] MEDS: LACTATED RINGERS 1,000 ML 42 ML IV ×2 (11:53→16:12)
--- NOTE | 2020-02-04 13:12 | PM.PREOP ---
Pre-operative Note Interval Note History & Physical reviewed/Exam performed by Physician: Yes Changes to H&P: No H&P completed within 30 days and has changed as indicated here:: Patient is a 49 yo male now 9 months s/p R TKA. He has had persistent effusions and pain at the end of the day. Aspiration and blood work performed last week show elevated WBC, ESR, CRP and synovial fluid cell count of 29,000+ cells as well as neutrophil 87%. These findings are highly suggestive of infection. No organisms have grown out of the aspiration. Plan for right knee tissue cultures and swabs, I&D, explanation of components and placement of articulating spacer with plans to replant after 6+ weeks of IV abx therapy directed by Infectious disease.
[2020-02-04] MEDS: CELECOXIB 200 MG CAPSULE PO (13:14)
[2020-02-04] MEDS: PREGABALIN 75 MG CAPSULE PO (13:14)
[2020-02-04] MEDS: ACETAMINOPHEN 325 MG TABLET 975 MG PO (13:14)
--- NOTE | 2020-02-04 13:32 | SUR.PREOP ---
Premedicated per Dr. Hand.
[2020-02-04] MEDS: TRANEXAMIC ACID 1,000 MG VIAL 1000 MG IV (14:20)
[2020-02-04] MEDS: CEFAZOLIN 2 GM/100 ML FROZ.PIGGY IV ×2 (14:56→22:06)
--- NOTE | 2020-02-04 15:02 | SUR.OPER ---
Supine on padded OR bed. Pillow under head, arms secured on padded armboards <90 degree abduction. Safety belt across torso. Non-operative leg secured with tape over blanket over lower leg. Operative leg positioned on foam roller positioner per surgeon. bump under hip of operative leg
[2020-02-04] MEDS: ROPIVACAINE 0.5% PF 20ML 60 ML, MORPHINE 4 MG, KETOROLAC 30 MG INJ (15:36)
[2020-02-04] MEDS: VANCOMYCIN 1,000 MG VIAL 1000 MG TOP (16:09)
--- NOTE | 2020-02-04 17:03 | P.OP_ITS ---
Operative Date/Time/Diagnoses Date of procedure: 02/04/20 Time of procedure: 17:03 Pre-op diagnosis: Infected R TKA Post-op diagnosis: same Procedure & Clinicians Procedure: Irrigation and debridement of soft tissue and bone using sharp dissection Explant of R TKA Re-implantation of articualting spacer with abx impregnated cement Same procedure as scheduled: Yes Indications: Infected R TKA by minor criteria Surgeon: Chris Dejesus B2B Sales Consultant: Gonsalo Cole Anesthesia Type: General and Spinal Operative Notes Findings: Infected R TKA inflamed synovium tibial base plate loosening Closure Type: non-primary Specimen(s): other (3x tissue swabs, 3x tissu cultures) Prosthetic devices, grafts, tissues, transplants, or devices: Schmidt and Nephew size 7 right CR legion femur Schmidt and Nephew size 5-615 mm thick dished polyethylene Estimated Blood Loss (mL): 200 Blood products transfused: none Tourniquet time (min): 120 Procedure in detail: Patient was met in the preoperative holding area where the site and side of surgery were marked by MD the risks and benefits of surgery were discussed the patient the last minute questions were answered. Patient was then brought back into operating room where he received a spinal anesthetic was placed supine on the operating room table. He was induced under general anesthesia. A nonsterile tourniquet was placed on the right thigh. The right lower extremity then prepped and draped in normal sterile fashion. A surgical time-out was taken to verify the new the patient as well as the site and side of surgery. Previous surgical incision was marked out and a longitudinal incision was made over the right knee over the top of the previous surgical incision. Skin flaps were elevated using 10. Blade followed by a medial parapatellar arthrotomy. At this point culture swabs were sent as well as 1 of the 3 tissue cultures. A medial peel was then performed as well as release of the scar down Hoffa's fat pad off the anterior femur. A synovectomy was completed at this time focusing on the medial and lateral gutters. A 2nd tissue culture were sent at this time. Next a revision saw blade was used to get between the prosthetic and cement interface for the femoral component. Once this was completed we then used a flexible osteotome to complete our loosening of the femoral component. This was then removed using a bone tamp from the top of the femoral prosthesis. This point a tissue culture was taken from behind the femur and the 3rd and final tissue culture sent. At this point antibiotics were started. The polyethylene was then removed and PCL retractor was used on the posterior aspect of the tibia. This delivered the tibia forward. A saw was then able to be used to loosen the front part of the tibial component from the cement interface both medially and laterally. We also at this point to this and a saw blade across the posterior aspect of the tibial plate to complete the loosening of the tibial component. This was then again removed using a bone tamp. All excess cement was then removed from both the femoral and tibial surfaces. Flexible reamers were sent down the femoral and tibial canal for debridement. Posterior debridement of the capsule was then performed. Next the patellar button was removed using an oscillating saw between the cement interface in the plastic. The patellar buttons were then removed. A thorough soft tissue debridement was completed this point. The wound was irrigated with 5 L of normal saline followed by chlorhexidine with a scrub brush. This was then lavaged away and Betadine solution was allowed to sit in the wound for 5 minutes. This was then lavaged with a and the tibia was dried in preparation for cementing. First batch of cement was a single batch of [place] with gentamicin 3 g of vancomycin were added to this. This was then lightly finger packed into the tibial canal as well as the tibial cut surface. A bur was used to roughen the backside of the 15 mm thick polyethylene. This was then cemented into place and allowed to fully cure. The femur was then dried in preparation for cementing and a 2nd batch of antibiotic cement with gentamicin and 6 g of powdered vancomycin was prepared. This was then finger packed onto the distal femur as well as placed on the posterior condylar feet of the femoral component. This was then lightly mallet into place and excess cement was removed. The knee was then brought into full extension and excess cement was again cleared. While cement was curing Betadine solution was used and allowed to sit for 5 minutes. This was then lavaged away and a final pulse lavage of the knee was performed. Closure was then performed using a PDS in interrupted fashion in the capsular closure followed by 2 0 PDS in the subcutaneous tissue followed by kenya on skin. A sonja dressing was then placed. My high school assistant football coach was Dr. Gonsalo Cole. A PA was not available for 1st assist. Complications: none Post-operative Condition: stable Disposition: PACU Plan for aftercare: Antibiotic course will be determined by intraop cultures. Plan at this time will be a start Ancef and vancomycin until cultures come back. He can be weight-bearing as tolerated on the right lower extremity.
[2020-02-04] MEDS: hydrOXYzine 50 MG/ML INJ 25 MG IM (17:11)
[2020-02-04] MEDS: LORazepam 2 MG/ML INJ 0.25 MG IV (17:11)
[2020-02-04] MEDS: HYDROMORPHONE 2 MG INJ IV ×4 (17:12→17:35)
[2020-02-04] MEDS: OXYCODONE IR 5 MG TABLET PO (17:17)
[2020-02-04] MEDS: OXYCODONE IR 5 MG TABLET 10 MG PO (17:53)
[2020-02-04] MEDS: LACTATED RINGERS 1,000 ML 125 ML IV (18:30)
[2020-02-04] MEDS: HYDROMORPHONE 0.5 MG INJ IV ×3 (18:51→23:37)
--- NOTE | 2020-02-04 20:00 | PC.ADMIT ---
[address] [place] [address] Admission Note: The patient,Sha Barfield,49 y/o, was given written information regarding hospital policies, unit procedures and contact persons. Patient's smoking status: Current every day smoker. Vital Signs - 8 hr 02/04/20 17:03 02/04/20 17:08 02/04/20 17:20 Temperature 98.4 F Pulse Rate 82 87 67 Respiratory Rate 20 12 16 Blood Pressure 135/86 145/97 H 128/91 H Pulse Oximetry 97 96 92 02/04/20 17:32 02/04/20 17:42 02/04/20 17:54 Temperature Pulse Rate 79 67 75 Respiratory Rate 14 14 14 Blood Pressure 142/81 H 126/82 137/99 H Pulse Oximetry 96 92 94 02/04/20 18:10 02/04/20 18:40 02/04/20 19:10 Temperature 98.3 F 98 F 98.6 F Pulse Rate 77 68 80 Respiratory Rate 16 17 18 Blood Pressure 137/83 145/86 H 154/96 H Pulse Oximetry 94 93 97 Patient up from PACU 1810, awake and alert. Stated pain was at a tolerable level at that time. Dozes off easily but wakes to voice. Rt knee kraig wrap CDI, Chad drsg in place.
[2020-02-04] MEDS: ASPIRIN EC 81 MG TABLET PO (20:05)
[2020-02-04] MEDS: OXYCODONE ER 10 MG TAB PO (20:06)
[2020-02-04] MEDS: ACETAMINOPHEN 325 MG TABLET 650 MG PO (20:06)
[2020-02-04] MEDS: DOCUSATE 100 MG CAPSULE PO (20:06)
--- NOTE | 2020-02-04 21:10 | PC.NURSE ---
Patient resting in bed, pain has been tolerable with ivp dilaudid and po oxycontin. Girl friend brought in a cheese burger which patient tolerated well, denied any nausea. Patient has been A&O, calm and cooperative. Patient not oob but cms (+)
[2020-02-04 21:34] LABS: Add Manual Diff / Slide Review NO; Basophils Absolute Auto 100 /uL (0-100); Basophils Percent Auto 0.4 % (0-2); Eosinophils Absolute Auto 0 /uL (0-450); Hematocrit 38.3 % (41-53); Hemoglobin 12.5 g/dL (13.5-17.5); Lymphocytes Absolute Auto 500 /uL (1100-4500); Mean Corpuscular HGB Conc 32.7 % (30-36); Mean Corpuscular Hemoglobin 29.7 PG (26-34); Mean Corpuscular Volume 90.7 fL (80-100); Monocytes Absolute Auto 500 /uL (0-900); Monocytes Percent Auto 3.1 % (3-14); Neutrophils Absolute Auto 16000 /uL (1500-7000); Neutrophils Percent Auto 93.5 % (50-75); Platelet Count 329 X10^3/uL (150-400); Red Blood Cell Count 4.23 X10^6/uL (4.5-5.9); Red Cell Distribution Width 15.2 % (11.6-14.8); White Blood Cell Count 17.1 X10^3/uL (4.5-11.0)
[2020-02-04] MEDS: METOCLOPRAMIDE 10 MG/2 ML INJ IV (23:50)
[2020-02-05] VITALS (7 sets, daily range): BP systolic 122–149; BP diastolic 70–81; PULSE 72–79; RESP 16–19; TEMP 36.6–37.1; O2SAT 97–98
[2020-02-05] MEDS: LACTATED RINGERS 1,000 ML 125 ML IV (03:26)
[2020-02-05] MEDS: VANCOMYCIN 1,000 MG/200 ML PIGGYBACK 200 MG IV (03:56)
[2020-02-05 05:17] LABS: Hematocrit 35.8 % (41-53); Hemoglobin 11.7 g/dL (13.5-17.5)
[2020-02-05] MEDS: CEFAZOLIN 2 GM/100 ML FROZ.PIGGY IV ×3 (05:59→21:02)
[2020-02-05] MEDS: HYDROMORPHONE 0.5 MG INJ IV ×4 (06:01→16:05)
[2020-02-05] MEDS: ACETAMINOPHEN 325 MG TABLET 650 MG PO ×3 (07:48→21:02)
[2020-02-05] MEDS: OXYCODONE ER 10 MG TAB PO ×2 (07:48→21:02)
[2020-02-05] MEDS: ASPIRIN EC 81 MG TABLET PO ×2 (07:48→21:02)
[2020-02-05] MEDS: DOCUSATE 100 MG CAPSULE PO ×2 (07:48→21:02)
--- NOTE | 2020-02-05 09:02 | PC.NURSE ---
Addendum entered by Gretchen Kim R.N. 02/05/20 15:30: Patient given 15mg IV Toradol and 0.5mg IV Dilaudid. Patient SBA to BR gait steady with FWW. After returning to bed patient states I do notice a difference in the pain rates 8/10. Addendum entered by Gretchen Kim R.N. 02/05/20 14:39: Spoke with Patricia SALCEDO concerning patients pain, orders received. Addendum entered by Gretchen Kim R.N. 02/05/20 14:34: Patient rating pain to right knee 10/10 after ambulating with physical therapy. Given another 2mg PO Dilaudid, scheduled Tylenol and flexeril. Fresh ice pack applied. Call placed to MD. Original Note: Patient alert, oriented rates pain to right knee and leg 7/10. Fresh ice applied, patient given 0.5mg IVP Dilaudid, Tylenol and scheduled Oxycontin. Denies nausea.
--- NOTE | 2020-02-05 09:44 | PT.IIE ---
Current Diagnoses Unilateral primary osteoarthritis, right knee (02/04/20) Infection and inflammatory reaction due to internal right knee prosthesis, initial encounter (02/04/20) Surgery Performed Operation Date: 02/04/20 13:15 Actual Procedures p Revison total knee w/ removal of prosthesis w/ or w/out antibiotic spacer(Right) - Chris Dejesus MD Surgical History (Last Updated 01/31/20 @ 12:41 by Yovana Hale RN) History of arthroplasty of right knee (Acute 05/02/19) History of esophagogastroduodenoscopy (EGD) (Acute) S/P ACL reconstruction (Acute ~1991) Medical History (Last Updated 04/24/19 @ 16:13 by Misti Mcnulty RN) Colitis (Acute) Diverticulosis (Acute) Hip pain, left (Acute) History of esophageal reflux (Acute) Hypertension (Acute) Osteoarthritis of knee (Acute) Right knee pain (Acute) Physical Therapy Inpatient Evaluation/Re-Eval M1 PT/OT-IP Prior Functional Status Start: 02/05/20 08:37 Freq: NEEDED Status: Active Protocol: Document 02/05/20 09:06 SP (Rec: 02/05/20 09:35 SP [email or web address]) Medical Review Prior Functional Status Mobility and Gait Independent Activities of Daily Living and IADL's Independent Prior Functional Level (Other details) Pt independent with all ADLs/ IADLs, mobility, and works full-time. Social History Household Members significant other Living Arrangements RV Number of Floors (Floors) One Floor Number of Stairs To Enter/Railing? 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 The house has 1 [address] and is one level. Pt will have family with him for any assistance he may need. His bathroom has a walk-in shower, high toilet, and grab bars. 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 M2 PT-IP Current Condition Start: 02/05/20 08:37 Freq: NEEDED Status: Active Protocol: Document 02/05/20 09:06 SP (Rec: 02/05/20 09:35 SP [email or web address]) Physical Therapy Current Condition Current Condition Evaluation Date 02/05/20 Treatment Diagnosis I&D R knee Onset Date 02/04/20 Weight Bearing Status Weight Bearing Status Weight Bear as Tolerated M3 PT-IP Subjective Start: 02/05/20 08:37 Freq: NEEDED Status: Active Protocol: Document 02/05/20 09:06 SP (Rec: 02/05/20 09:35 SP [email or web address]) Subjective Physical Therapy Visit Type Type Initial Evaluation Visit Start Time 08:40 Visit Stop Time 09:02 Total Visit Minutes 22 Number of EXPANSION JOINT BUILDER Visits 0 Physical Therapy Visit Comments Patient Comments Pt eager to get up and walk. He is frustrated with how therapy was for him last time he was in the hospital however is willing to stand up and walk around. He understands that he is WBAT. Patient Goals Get back to work, walk without AD. Therapy Pain Assessment Pain When Pain Assessed During Mobility Pain Present Pain Present Pain Reported Location right knee Intensity 7 Scale Used Numeric (1 - 10) Pain Management Techniques Apply Cold,Elevation,Re- positioning M4 PT-IP Mobility and Gait Start: 02/05/20 08:37 Freq: NEEDED Status: Active Protocol: Document 02/05/20 09:06 SP (Rec: 02/05/20 09:35 SP [email or web address]) PT-Bed Mobility Assessment Supine to Sit Supine to Sit Standby Assistance,Head of Bed Elevated PT-Transfer Assessment Sit to and From Stand Sit to and from Stand Contact Guard Assistance Equipment Transfer Assistive Device Gait Belt,Front Wheeled Walker Orthotic/Prosthetic Devices or Brace: No Transfer Ability Level of Assist Contact Guard Assistance Comments Mobility Comments Pt requires BUE support and CGA to transfer [id number]. He is able to transfer supine to sitting without assistance and HOB elevated. Gait Assessment Gait Gait Assistance Required: Contact Guard Assist Distance (Feet) 50 Able to Maintain Weight Bearing Status Yes During Gait Assistive Devices Assistive Device Front Wheeled Walker Orthotic/Prosthetic Devices or Brace: No Gait Deviations General Gait Pattern Antalgic,Decreased Stride Length,Flexed Trunk Factors Limiting Gait Function Factors Limiting Gait Function Decreased Activity Tolerance, Decreased Strength,Limited Range of Motion,Pain Comments Gait Comments Pt ambulated 50ft with FWW and CGA. He demonstrated step- through gait pattern and forward trunk lean. M5 PT-IP Objective Assessments Start: 02/05/20 08:37 Freq: NEEDED Status: Active Protocol: Document 02/05/20 09:06 SP (Rec: 02/05/20 09:35 SP [email or web address]) Orientation Orientation/Cognition Level of Alertness Alert Language Function Ability No Deficits Noted Safety Awareness Understands Safety Issues Memory Description No Deficits Noted M6 PT-IP Treatment Start: 02/05/20 08:37 Freq: NEEDED Status: Active Protocol: Document 02/05/20 09:06 SP (Rec: 02/05/20 09:35 SP [email or web address]) Physical Therapy Treatment Education Education Provided Precautions,Weight Bearing Status,Safety M7 PT-IP Assessment and Plan Start: 02/05/20 08:37 Freq: NEEDED Status: Active Protocol: Document 02/05/20 09:06 SP (Rec: 02/05/20 09:35 SP [email or web address]) PT Summary Assessment and Plan Potential Rehabilitation Potential Good Status of Condition at Evaluation Evolving Summary Impairments Pain,ROM,Strength,Balance, Transfers,Gait,Activity Tolerance Assessment Summary Pt presents to acute PT following I&D of R knee. Pt has increase of R knee pain with ambulation and transfers, decreased knee ROM/strength, and decreased activity tolerance. He ambulates with FWW and CGA. 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 Goals Bed Mobility Goal Independent Transfer Goal Independent Gait Goal Independent Gait Distance 100ft Days to Meet Goals 5 Frequency of Treatment Frequency Of Treatment Twice a Day Treatment Plan Physical Therapy Treatment Plan Bed Mobility Training,Transfer Training,Gait Training, Therapeutic Exercise,Balance Retraining,Discharge Planning, Hot or Cold Pack,Neuromuscular Re-ed,Manual Therapy Other Recommendations and Next Treatment Continue to work on gait Focus pattern and sit to stand. Review TKA exercises. Recommendations To Nursing Amount of Assist Needed Standby Assistance,1 Person Assist Discharge Recommendations PT Discharge Recommendations Home with Assistance, Outpatient PT Equipment Needed for Home Before clarify if pt has FWW Discharge Transportation Needs at Discharge Private Vehicle
--- NOTE | 2020-02-05 11:30 | P.PN_ITS ---
Subjective Subjective Date Patient Seen: 02/05/20 Time Patient Seen: 11:30 Interval history: POD #1 s/p irrigation and debridement of soft tissue and bone using sharp dissection, explantation of R TKA, and Re-implantation of articualting spacer with abx impregnated cement with Dr. Dejesus. Patient's pain is not Well controlled with OxyContin ER. Patient is requesting a change of pain medication. He notes relief of muscle spasms with Flexeril. Exam Vital Signs (past 8 hours): - 02/05/20 03:32 02/05/20 08:07 02/05/20 08:20 Temperature 97.9 F 98.5 F 98.5 F Pulse Rate 78 72 Respiratory Rate 18 18 Blood Pressure 124/70 149/81 H Pulse Oximetry 97 98 Oxygen Delivery Method Room Air Oxygen Flow Rate 0 Narrative Exam Narrative: Patient is sitting at bedside chair no acute distress. He is alert orient x3. Calves are soft, compressible, nontender bilaterally. Chad dressing on and functioning, with slight shadow drainage. He is able to actively dorsiflex plantar flex. Objective Labs Result Diagrams: 02/05/20 04:54 Labs: Laboratory Results - last 24 hr 02/04/20 02/05/20 21:25 04:54 WBC 17.1 H RBC 4.23 L Hgb 12.5 L 11.7 L Hct 38.3 L 35.8 L MCV 90.7 MCH 29.7 MCHC 32.7 RDW 15.2 H Plt Count 329 Neut % (Auto) 93.5 H Lymph % (Auto) 3.0 L [place] % (Auto) 3.1 Eos % (Auto) 0.0 L Baso % (Auto) 0.4 Neut # (Auto) 45551 H Lymph # (Auto) 500 L [place] # (Auto) 500 Eos # (Auto) 0 Baso # (Auto) 100 Assessment & Plan Post-op Postoperative Procedures: Procedures Operation Date: 02/04/20 13:15 Actual Procedures Side Surgeon p Revison total knee w/ removal of prosthesis w/ or w/out antibiotic spacer Right Chris Dejesus MD Patient will resume IV antibiotics; Vancomycin 1 g every 24 hours, and Ancef 2 g every 8 hours until cultures get back. Waiting for culture results before or dering PICC line. Patient requesting a medication for anxiety before PICC line placement if one is needed. Continue to mobilize with physical therapy today. Patient will change to oral Dilaudid for pain control. Patient will likely need home health PT at time of DC. Quality VTE Deep Vein Thrombosis/Pulmonary Embolism Present on Admission: No
[2020-02-05] MEDS: OXYCODONE IR 10 MG TABLET PO (11:32)
[2020-02-05 12:18] LABS: Estimated Glomerular Filt Rate > 60.0 mL/min (>60)
[2020-02-05] MEDS: HYDROMORPHONE 2 MG TABLET PO ×2 (13:05→14:25)
[2020-02-05] MEDS: SODIUM CHLORIDE 0.9% FLUSH 10 ML IV ×2 (13:07→14:51)
[2020-02-05] MEDS: VANCOMYCIN 1,500 MG/300 ML FROZ.PIGGY 200 MG IV ×2 (13:48→21:54)
[2020-02-05] MEDS: CYCLOBENZAPRINE 10 MG TABLET PO ×2 (13:51→21:55)
--- NOTE | 2020-02-05 14:12 | PT.IPTN ---
Current Diagnoses Unilateral primary osteoarthritis, right knee (02/04/20) Infection and inflammatory reaction due to internal right knee prosthesis, initial encounter (02/04/20) Surgery Performed Operation Date: 02/04/20 13:15 Actual Procedures p Revison total knee w/ removal of prosthesis w/ or w/out antibiotic spacer(Right) - Chris Dejesus MD Physical Therapy Treatment Note M2 PT-IP Current Condition Start: 02/05/20 08:37 Freq: NEEDED Status: Active Protocol: Document 02/05/20 09:06 SP (Rec: 02/05/20 09:35 SP [email or web address]) Physical Therapy Current Condition Current Condition Evaluation Date 02/05/20 Treatment Diagnosis I&D R knee Onset Date 02/04/20 Weight Bearing Status Weight Bearing Status Weight Bear as Tolerated M3 PT-IP Subjective Start: 02/05/20 08:37 Freq: NEEDED Status: Active Protocol: Document 02/05/20 14:12 CLB (Rec: 02/05/20 15:26 CLB [email or web address]) Subjective Physical Therapy Visit Type Type Treatment Note Visit Start Time 14:12 Visit Stop Time 14:32 Total Visit Minutes 20 Number of POLYSOM TECH Visits 1 Physical Therapy Visit Comments Patient Comments Pt willing to ambulate with therapy. Therapy Pain Assessment Pain When Pain Assessed During Mobility Pain Present Pain Present Pain Reported Location right knee Scale Used stated it was really high Pain Management Techniques Apply Cold,Elevation, Modification of Treatment,Re- positioning M4 PT-IP Mobility and Gait Start: 02/05/20 08:37 Freq: NEEDED Status: Active Protocol: Document 02/05/20 14:12 CLB (Rec: 02/05/20 15:26 CLB [email or web address]) PT-Bed Mobility Assessment Supine to Sit Supine to Sit Standby Assistance,Head of Bed Elevated PT-Transfer Assessment Sit to and From Stand Sit to and from Stand Standby Assistance Equipment Transfer Assistive Device Gait Belt,Front Wheeled Walker Orthotic/Prosthetic Devices or Brace: No Transfer Ability Level of Assist Standby Assistance Comments Mobility Comments Pt is SBA for sit-stand with use of UE's. Gait Assessment Gait Gait Assistance Required: Standby Assistance Distance (Feet) 50 Able to Maintain Weight Bearing Status Yes During Gait Assistive Devices Assistive Device Gait Belt,Front Wheeled Walker Orthotic/Prosthetic Devices or Brace: No Gait Deviations General Gait Pattern Antalgic,Decreased Stride Length,Flexed Trunk Factors Limiting Gait Function Factors Limiting Gait Function Decreased Activity Tolerance, Decreased Strength,Limited Range of Motion,Pain Comments Gait Comments Pt ambulated in torre ~50ft w/ FWW/SBA, Pt with increased pain during gait so further ambulation was not performed. M5 PT-IP Objective Assessments Start: 02/05/20 08:37 Freq: NEEDED Status: Active Protocol: Document 02/05/20 09:06 SP (Rec: 02/05/20 09:35 SP [email or web address]) Orientation Orientation/Cognition Level of Alertness Alert Language Function Ability No Deficits Noted Safety Awareness Understands Safety Issues Memory Description No Deficits Noted M6 PT-IP Treatment Start: 02/05/20 08:37 Freq: NEEDED Status: Active Protocol: Document 02/05/20 14:12 CLB (Rec: 02/05/20 15:26 CLB [email or web address]) Physical Therapy Treatment Exercises Exercises Ankle Pumps Education Education Provided Precautions,Weight Bearing Status,Safety M7 PT-IP Assessment and Plan Start: 02/05/20 08:37 Freq: NEEDED Status: Active Protocol: Document 02/05/20 14:12 CLB (Rec: 02/05/20 15:26 CLB [email or web address]) PT Summary Assessment and Plan Potential Rehabilitation Potential Good Status of Condition at Evaluation Evolving Summary Impairments Pain,ROM,Strength,Balance, Transfers,Gait,Activity Tolerance Assessment Summary Pt with increased pain during mobility was unable to increase gait distance or perform theraputic exercises. Pt is able to get to EOB with HOB elevated and sit-stand requiring SBA. Pt ambulated SBA with good safety awareness but was limited due to pain. Pt left in bed with all needs within reach, family present, right knee elevated and ice pack on right knee. RN notified of pt pain. Goals Bed Mobility Goal Independent Transfer Goal Independent Gait Goal Independent Gait Distance 100ft Days to Meet Goals 5 Frequency of Treatment Frequency Of Treatment Twice a Day Treatment Plan Physical Therapy Treatment Plan Bed Mobility Training,Transfer Training,Gait Training, Therapeutic Exercise,Balance Retraining,Discharge Planning, Hot or Cold Pack,Neuromuscular Re-ed,Manual Therapy Other Recommendations and Next Treatment Continue to work on gait Focus pattern and sit to stand. Review TKA exercises. Recommendations To Nursing Amount of Assist Needed Standby Assistance,1 Person Assist Discharge Recommendations PT Discharge Recommendations Home with Assistance, Outpatient PT Equipment Needed for Home Before clarify if pt has FWW Discharge Transportation Needs at Discharge Private Vehicle
[2020-02-05] MEDS: KETOROLAC 30 MG/ML VIAL 15 MG IV (14:50)
--- NOTE | 2020-02-05 15:57 | CM.DANOTE ---
DCP: Case received, EMR reviewed and met with patient. Patient's father and mother in law also present in the room. Introduced self and role. Was able to obtain information from patient regarding baseline activity and living situation. DCP assessment completed with information currently available. Patient is a 49 year old male who admitted yesterday morning to the care of the orthopedic team. Payer: confirmed: [employer] and [facility] [employer]. Patient came to the hospital for a surgical procedure. He had right knee surgery secondary to infection and inflammatory reaction to the surgery. Patient has history of osteoarthritis. Met with patient in his room. He was sitting up in bed, father in law in room, and present. Patient is alert and oriented, resides in [place] with his significant other, Candy. Patient has crutches, walker, and cane for use, he used during his prior surgery. Stated that he has been driving, but will not be able to drive, since he has a jeep. He has family support. He mentioned that he wanted home health services, with no preferences for agencies. Let him know that this returned case inspector would contact orthopedics to ensure that he can have P.T. Spoke to Sherrell at [facility], stated, Dr. Strong already ordered home health with [facility], to include nursing, P.T, O.T. Also, asked if patient would need IV antibiotics, but they are awaiting culture before PICC line is placed. Called Burton at [facility], and confirmed that they had face to face already faxed by [facility] office, for nursing, P.T, O.T. and that he is covered by his insurance. P: DCP to continue to follow. Patient will go home with [facility], awaiting to see if he will need home IV antibiotics, and can contact [facility] if this is needed. [facility] will need discharge summary upon discharge. Bebe Cat RN/Video Intern
[2020-02-05] MEDS: PANTOPRAZOLE 20 MG TABLET PO (16:16)
[2020-02-05] MEDS: HYDROMORPHONE 4 MG TABLET PO ×3 (17:27→23:42)
[2020-02-05] MEDS: CALCIUM CARBONATE 500 MG TAB PO (18:47)
[2020-02-05] MEDS: DOXAZOSIN 2 MG TABLET PO (21:04)
--- NOTE | 2020-02-06 01:21 | PC.NURSE ---
Patient is axox3 and can make needs known. Educated patient on using call light and to wait for staff before exiting bed to use toilet. Patient acknowledges that he's at risk for inpatient fall due to medication for pain and unfamiliar environment but states he accepts fall risk. Continuing to alarm the bed to notify staff when patient has left it.
[2020-02-06] MEDS: HYDROMORPHONE 4 MG TABLET PO ×7 (02:48→21:15)
[2020-02-06 04:00] VITALS: BP 114/69; PULSE 72; RESP 18; TEMP 36.7; O2SAT 97
[2020-02-06] MEDS: CEFAZOLIN 2 GM/100 ML FROZ.PIGGY IV ×3 (05:11→21:15)
[2020-02-06] MEDS: SODIUM CHLORIDE 0.9% FLUSH 10 ML IV ×6 (05:11→22:23)
[2020-02-06] MEDS: VANCOMYCIN 1,500 MG/300 ML FROZ.PIGGY 200 MG IV ×3 (05:49→22:21)
[2020-02-06] MEDS: PANTOPRAZOLE 20 MG TABLET PO (06:05)
[2020-02-06] MEDS: OXYCODONE ER 10 MG TAB PO ×2 (07:54→21:15)
[2020-02-06] MEDS: ASPIRIN EC 81 MG TABLET PO ×2 (07:54→21:15)
[2020-02-06] MEDS: ACETAMINOPHEN 325 MG TABLET 650 MG PO ×3 (07:55→21:14)
[2020-02-06] MEDS: HYDROMORPHONE 0.5 MG INJ IV ×3 (07:59→15:34)
[2020-02-06 08:00] VITALS: BP 146/76; PULSE 80; RESP 18; TEMP 37; O2SAT 99
[2020-02-06] MEDS: DOCUSATE 100 MG CAPSULE PO ×2 (08:05→21:14)
--- NOTE | 2020-02-06 09:26 | PM.PNPO.1 ---
Subjective Subjective Date Patient Seen: 02/06/20 Time Patient Seen: 08:29 Interval history: POD #2 s/p irrigation and debridement of soft tissue and bone using sharp dissection, explantation of R TKA, and Re-implantation of articualting spacer with abx impregnated cement with Dr. Dejesus. Patient has better pain control today. He required IV toradol yesterday. Patient's pain is well controlled with Oxycontin ER, and dilaudid 4 mg. He notes relief of muscle spasms with Flexeril. Exam Vital Signs (past 8 hours): - 02/06/20 04:00 02/06/20 08:00 Temperature 98.0 F 98.6 F Pulse Rate 72 80 Respiratory Rate 18 18 Blood Pressure 114/69 146/76 H Pulse Oximetry 97 99 Oxygen Delivery Method Room Air Oxygen Flow Rate 0 Narrative Exam Narrative: Patient is sitting at bedside chair no acute distress. Alert oriented x3. Calves are soft, compressible, nontender bilaterally. Expected swelling a knee after surgery. Chad dressing intact and functioning with slightly more shadow drainage than yesterday. He is able actively dorsiflex and plantar flex. Objective Labs Result Diagrams: 02/06/20 11:55 02/05/20 04:54 Labs: Laboratory Results - last 24 hr 02/05/20 04:54 Creatinine 0.79 Estimated GFR > 60.0 Assessment & Plan Post-op Postoperative Procedures: Procedures Operation Date: 02/04/20 13:15 Actual Procedures Side Surgeon p Revison total knee w/ removal of prosthesis w/ or w/out antibiotic spacer Right Chris Dejesus MD Continue current pain control. Patient will have PICC line placed today. IV Ativan ordered for anxiety before procedure. He will continue to work with physical therapy. Awaiting culture results. Patient will discharge once cultures are completed. Quality VTE Deep Vein Thrombosis/Pulmonary Embolism Present on Admission: No
--- NOTE | 2020-02-06 09:59 | PT-IP ANOTE ---
Attempted to see pt at 930 am with spouse at bedside. pt reports he has pain 7/10 after using the bathroom with nursing staff and spouse assistance. Pt requested to let him rest and to be seen in this afternoon. Will reattempt PT again later this pm.
[2020-02-06 11:50] VITALS: BP 130/72; PULSE 77; RESP 17; TEMP 37.1; O2SAT 98
[2020-02-06 12:32] LABS: Add Manual Diff / Slide Review NO; Basophils Absolute Auto 100 /uL (0-100); Basophils Percent Auto 0.8 % (0-2); Eosinophils Absolute Auto 500 /uL (0-450); Eosinophils Percent Auto 4.3 % (2-4); Hematocrit 33.6 % (41-53); Hemoglobin 11.2 g/dL (13.5-17.5); Lymphocytes Absolute Auto 1900 /uL (1100-4500); Lymphocytes Percent Auto 17.6 % (25-40); Mean Corpuscular HGB Conc 33.2 % (30-36); Mean Corpuscular Hemoglobin 30.3 PG (26-34); Mean Corpuscular Volume 91.1 fL (80-100); Monocytes Absolute Auto 1100 /uL (0-900); Monocytes Percent Auto 10.1 % (3-14); Neutrophils Absolute Auto 7300 /uL (1500-7000); Neutrophils Percent Auto 67.2 % (50-75); Platelet Count 268 X10^3/uL (150-400); Red Blood Cell Count 3.69 X10^6/uL (4.5-5.9); Red Cell Distribution Width 15.1 % (11.6-14.8); White Blood Cell Count 10.9 X10^3/uL (4.5-11.0)
[2020-02-06] MEDS: LORazepam 2 MG/ML INJ 1 MG IV (12:32)
--- NOTE | 2020-02-06 13:31 | DI.RAD.S_ITS ---
PROCEDURE: XR CHEST 1V INDICATIONS: picc line TECHNIQUE: One view of the chest was acquired. COMPARISON: None. FINDINGS: Surgical changes and devices: Right-sided PICC line is seen the tip projecting in the upper SVC. Lungs and pleura: Lungs are clear. Hyperdensity presumed calcified granuloma projects in the right midlung measuring 5 mm. No pleural effusions or pneumothorax. A density projects over the left costophrenic angle which may be external to patient, technically nonspecific and only partially visualized Mediastinum: Mediastinal contours appear normal. Heart size is normal. Bones and chest wall: No suspicious bony lesions. Overlying soft tissues appear unremarkable. IMPRESSION: Right PICC line with tip projecting in the upper SVC Dictated by: Damian Neville M.D. on 02/06/2020 at 13:52 Approved by: Damian Neville M.D. on 02/06/2020 at 13:54
--- NOTE | 2020-02-06 14:20 | PT-IP ANOTE ---
Pt refused pm PT treatment today, has been in alot of R knee pain 7/10 during mobility and WB, has been finally resting with low level pain and does not want to make his R knee feel worse, took pain meds 2.5 hrs ago. Pt stated will participate tomorrow. REVENUE COORDINATOR educated patient on importance of ROM and mobility benefits, patient understood but continued to decline working with PT. REVENUE COORDINATOR asked when girlfriend would be back tomorrow to complete caregiver training and need to assess step mgt to assimulate home enterance. Pt stated frustration needing to do those activities when his girlfriend is a [employer] and helps assist her own patients, why she can't help in room when there visiting him and knows the stairs at home will go well from previous surgeries but willing to perform tomorrow understanding the need for a visual current level of function performance for safety prior to DC. Pt stated girlfriend will probably be back to visit tomorrow afternoon.
[2020-02-06 14:37] LABS: Vancomycin Trough 14.1 ug/mL (10-20)
[2020-02-06] MEDS: CYCLOBENZAPRINE 10 MG TABLET PO (15:34)
[2020-02-06 16:11] VITALS: BP 121/63; PULSE 83; RESP 16; TEMP 36.8; O2SAT 96
--- NOTE | 2020-02-06 16:24 | CM.DPC ---
DCP continued: EMR Reviewed: CM/RN Called Dr. Harvey Wynne to talk about what antibiotic the patient is being D/C home with. Sherrell stated that Dr. Meyers hasn't determined what the antibiotic will be and is waiting for cultures to come back... CM/RN spoke to patient who stated he would prefer [facility] vs Out patient infusions here at the hospital because he lives in [place] and it would be difficult to get here daily. CM/ RN spoke with Marques with [facility] and they do take [employer] for their services and once antibiotic is known we can work on getting patient set up for D/C. CM/Rn will follow up tomorrow to determine what antibiotic is needed. Thalia Schmidt Rn
[2020-02-06 19:47] VITALS: BP 115/68; PULSE 81; RESP 15; TEMP 37.1; O2SAT 97
[2020-02-06] MEDS: DOXAZOSIN 2 MG TABLET PO (22:21)
[2020-02-07] VITALS (7 sets, daily range): BP systolic 110–130; BP diastolic 71–86; PULSE 69–83; RESP 16–20; TEMP 36.2–37.3; O2SAT 96–99
[2020-02-07] MEDS: HYDROMORPHONE 0.5 MG INJ IV (00:31)
[2020-02-07] MEDS: OXYCODONE IR 10 MG TABLET PO ×6 (02:18→22:41)
[2020-02-07] MEDS: CYCLOBENZAPRINE 10 MG TABLET PO ×3 (02:19→21:38)
--- NOTE | 2020-02-07 02:41 | PC.NURSE ---
Addendum entered by Kimberly Morfin R.N. 02/07/20 03:46: Pt reports good relief with oxycodone, dull ache barely noticeable with rest. Original Note: Discussed pain management options with patient in length. During reassessment of IV dilaudid patient reported minimal change in pain level. Offerred patient PO dilaudid to which patient asked if he could go back to the oxycodone instead. Discussed patient's pain management goals and expectations. Reported previous post op success with oxycodone and discussed the change in the medication that occurred on 02/04 from oxycodone to PO dilaudid. Educated patient that if he wants to reattempt the oxycodone that is on his MAR that he will not be getting the PO dilaudid which patient states is acceptable. Also medicated with PRN flexeril for muscle spasms and will continue to reassess for pain control and management.
[2020-02-07] MEDS: SODIUM CHLORIDE 0.9% FLUSH 10 ML IV ×3 (05:07→22:41)
[2020-02-07] MEDS: CEFAZOLIN 2 GM/100 ML FROZ.PIGGY IV ×3 (05:07→21:38)
[2020-02-07] MEDS: VANCOMYCIN 1,500 MG/300 ML FROZ.PIGGY 200 MG IV ×3 (05:53→22:40)
[2020-02-07] MEDS: PANTOPRAZOLE 20 MG TABLET PO (06:20)
--- NOTE | 2020-02-07 09:02 | PT.IPTN ---
Current Diagnoses Unilateral primary osteoarthritis, right knee (02/04/20) Infection and inflammatory reaction due to internal right knee prosthesis, initial encounter (02/04/20) Surgery Performed Operation Date: 02/04/20 13:15 Actual Procedures p Revison total knee w/ removal of prosthesis w/ or w/out antibiotic spacer(Right) - Chris Dejesus MD Physical Therapy Treatment Note M2 PT-IP Current Condition Start: 02/05/20 08:37 Freq: NEEDED Status: Active Protocol: Document 02/05/20 09:06 SP (Rec: 02/05/20 09:35 SP [id number]) Physical Therapy Current Condition Current Condition Evaluation Date 02/05/20 Treatment Diagnosis I&D R knee Onset Date 02/04/20 Weight Bearing Status Weight Bearing Status Weight Bear as Tolerated M3 PT-IP Subjective Start: 02/05/20 08:37 Freq: NEEDED Status: Active Protocol: Document 02/07/20 08:50 SP(2) (Rec: 02/07/20 09:26 SP(2) [id number]) Subjective Physical Therapy Visit Type Type Treatment Note Visit Start Time 08:50 Visit Stop Time 09:02 Total Visit Minutes 12 Number of ICT MANAGERS Visits 2 Physical Therapy Visit Comments Patient Comments Pt willing to work with PT this am but stated only ambulate and perform exercises , refuses stair mgt stating I know the stairs will go well at home and I am not doing them for you just to see. Patient Goals [place] to discharge home today with family, girlfriend. Therapy Pain Assessment Pain Present Pain Present Pain Reported Location right knee Scale Used no pain scale rating givene when asked, tolerable Pain Management Techniques Re-positioning,Timing of Activity with Medications M4 PT-IP Mobility and Gait Start: 02/05/20 08:37 Freq: NEEDED Status: Active Protocol: Document 02/07/20 08:50 SP(2) (Rec: 02/07/20 09:26 SP(2) [id number]) PT-Bed Mobility Assessment Sit to Supine Sit to Supine Standby Assistance Scooting Scooting Up and Down in Bed Standby Assistance PT-Transfer Assessment Sit to and From Stand Sit to and from Stand Standby Assistance,Use of Upper Extremities Equipment Transfer Assistive Device Gait Belt,Front Wheeled Walker Orthotic/Prosthetic Devices or Brace: No Transfers Transfer Technique Pt ambulated using FWW Transfer Ability Level of Assist Standby Assistance Comments Mobility Comments Pt was sitting in chair when ICT MANAGERS arrived. Pt stated I am willing to do some walking and review post op exercises with you this morning but am not going to do the step. I know it will go well when get home . Refused further discussion on the subject. Pt performed sit to stand from unlocked chair, therapist was across room unable to get nearby in time, chair roll little backward, good self use of BUE and balance recovery into standing without AD in front, once standing patient reached out to R to grab FWW before therapist could safety provide SBA. ICT MANAGERS educated patient importance of assessing chair locked and FWW nearby before standing for reduced risk of LOB or fall, patient verbalized frustration but understood discussing for safety concern. Pt agreed to allowing ICT MANAGERS to don gait belt prior to ambulation for safety and hospital policy. Pt was willing to ambulate approx 150 [address] into hallway using FWW SBA , antalgic gait but stable, decreased knee flexion. Cued for as normal gait tolerated R knee flexion and foot clearance. Sitting to supine Mod I with HOB flat. ICT MANAGERS reviewed post op exercises: AROM heel slides approx 70* R knee flexion demonstrated but stopped after 3 reps secondary to increased pain. Pt declined quad set stating caused alot of pain previous surgeries and not willing to perform. Pt was laying in bed with call light and all needs in reach when left. Gait Assessment Gait Gait Assistance Required: Standby Assistance Able to Maintain Weight Bearing Status Yes During Gait Assistive Devices Assistive Device Gait Belt,Front Wheeled Walker Orthotic/Prosthetic Devices or Brace: No Gait Deviations General Gait Pattern Antalgic,Decreased Stride Length,Flexed Trunk Factors Limiting Gait Function Factors Limiting Gait Function Decreased Activity Tolerance, Decreased Strength,Limited Range of Motion,Pain Comments Gait Comments See Mobility comments. Stair Climbing Assessment Comments Stair Climbing Comments Pt refused stair mgt assessment, see comments. PT-Balance Assessment Sitting Balance and Reactions Static Sitting Balance Ability Normal Dynamic Sitting Balance Ability Normal Standing Balance and Reactions Static Standing Balance Ability Good Dynamic Standing Balance Ability Good Device Used FWW M5 PT-IP Objective Assessments Start: 02/05/20 08:37 Freq: NEEDED Status: Active Protocol: Document 02/05/20 09:06 SP (Rec: 02/05/20 09:35 SP [id number]) Orientation Orientation/Cognition Level of Alertness Alert Language Function Ability No Deficits Noted Safety Awareness Understands Safety Issues Memory Description No Deficits Noted M6 PT-IP Treatment Start: 02/05/20 08:37 Freq: NEEDED Status: Active Protocol: Document 02/07/20 08:50 SP(2) (Rec: 02/07/20 09:26 SP(2) [id number]) Physical Therapy Treatment Exercises Exercises Ankle Pumps,Heel Slides Education Education Provided Precautions,Weight Bearing Status,Safety Other Treatments Other Treatment Performed ICT MANAGERS discussed importance of R knee mobility post op exercises to tolerance of range and frequency to allow strength for mobility with understanding. M7 PT-IP Assessment and Plan Start: 02/05/20 08:37 Freq: NEEDED Status: Active Protocol: Document 02/07/20 08:50 SP(2) (Rec: 02/07/20 09:26 SP(2) [id number]) PT Summary Assessment and Plan Potential Rehabilitation Potential Good Status of Condition at Evaluation Evolving Summary Impairments Pain,ROM,Strength,Balance, Transfers,Gait,Activity Tolerance Assessment Summary Pt required SBA during transfer into standing with cuing for waiting for assistance to lock chair and provide fWW nearby for safety pre standing, see mobility comments sit to stand instance . Mod I for bed mobility. Unable to assess 1 step mgt for assimulation for pre DC safety, patient refused yesterday and today stating I know it will go fine and not going to perform just for you to see. Pt is able to go home with family assist and recommending outpatient PT when medically stable. Goals Bed Mobility Goal Independent Transfer Goal Independent Gait Goal Independent Gait Distance 100ft Days to Meet Goals 5 Frequency of Treatment Frequency Of Treatment Twice a Day Treatment Plan Physical Therapy Treatment Plan Bed Mobility Training,Transfer Training,Gait Training, Therapeutic Exercise,Balance Retraining,Discharge Planning, Hot or Cold Pack,Neuromuscular Re-ed,Manual Therapy Other Recommendations and Next Treatment Continue to work on gait Focus pattern and sit to stand. Review TKA exercises, stair mgt. Recommendations To Nursing Amount of Assist Needed 1 Person Assist Discharge Recommendations PT Discharge Recommendations Home with Assistance, Outpatient PT Equipment Needed for Home Before Has a FWW at home Discharge Transportation Needs at Discharge Private Vehicle
[2020-02-07] MEDS: OXYCODONE ER 10 MG TAB PO ×2 (09:15→21:37)
[2020-02-07] MEDS: DOCUSATE 100 MG CAPSULE PO ×2 (09:17→21:37)
[2020-02-07] MEDS: ASPIRIN EC 81 MG TABLET PO ×2 (09:20→21:38)
[2020-02-07] MEDS: ACETAMINOPHEN 325 MG TABLET 650 MG PO ×3 (09:26→21:38)
--- NOTE | 2020-02-07 10:29 | PM.PNPO.1 ---
Subjective Subjective Date Patient Seen: 02/07/20 Time Patient Seen: 07:30 Interval history: POD #3 s/p irrigation and debridement of soft tissue and bone using sharp dissection, explantation of R TKA, and Re-implantation of articualting spacer with abx impregnated cement with Dr. Dejesus. Patient has better pain control today. Patient's pain is well controlled with Oxycontin ER, and Oxycodone 10 mg. Denies fever, chills, chest pain, shortness of breath, calf pain, nausea, vomiting. Exam Vital Signs (past 8 hours): - 02/07/20 05:05 02/07/20 09:00 Temperature 97.4 F L 98.2 F Pulse Rate 71 69 Respiratory Rate 20 16 Blood Pressure 123/72 119/71 Pulse Oximetry 97 97 Oxygen Delivery Method Room Air Oxygen Flow Rate 0 Narrative Exam Narrative: Patient is sitting at bedside chair no acute distress. Alert oriented x3. SCDs in place. PICC line in place on RUE. Calves are soft, compressible, nontender bilaterally. Expected swelling a knee after surgery. Chad dressing intact and functioning with no increase in shadow drainage. He is able actively dorsiflex and plantar flex. Objective Labs Result Diagrams: 02/06/20 11:55 02/05/20 04:54 Labs: Laboratory Results - last 24 hr 02/06/20 02/06/20 11:55 14:00 WBC 10.9 RBC 3.69 L Hgb 11.2 L Hct 33.6 L MCV 91.1 MCH 30.3 MCHC 33.2 RDW 15.1 H Plt Count 268 Neut % (Auto) 67.2 D Lymph % (Auto) 17.6 L Boone % (Auto) 10.1 Eos % (Auto) 4.3 H Baso % (Auto) 0.8 Neut # (Auto) 7300 H Lymph # (Auto) 1900 Boone # (Auto) 1100 H Eos # (Auto) 500 H Baso # (Auto) 100 Vancomycin Trough 14.1 Assessment & Plan Post-op Postoperative Procedures: Procedures Operation Date: 02/04/20 13:15 Actual Procedures Side Surgeon p Revison total knee w/ removal of prosthesis w/ or w/out antibiotic spacer Right Chris Dejesus MD Postoperative day: 3 Postoperative status: doing well Postoperative plan narrative: Continue current pain control. Changed discharge medication from dilaudid 2mg to oxycodone 5mg. Partner brought dilaudid prescription to hospital for disposal. He will continue to work with physical therapy. Awaiting culture results. Patient will discharge once cultures are completed. Time Spent With Patient Time with patient: less than 15 minutes Quality VTE Deep Vein Thrombosis/Pulmonary Embolism Present on Admission: No
--- NOTE | 2020-02-07 14:17 | CM.DPC ---
DCP continued: EMR reviewed: Cm/Rn met with patient and patients at the bedside. CM/RN explained that we are still waiting on wound cultures to result that way the provider put the patient on the proper IV antibiotics when the patient D/C home. Patient and patients stated understanding. patients decided to leave tonight since she has to leave for work and will be back tomorrow morning. Thalia Schmidt RN
--- NOTE | 2020-02-07 14:28 | PT-IP ANOTE ---
Pt laying in bed with ice packs donned R knee, girlfriend in room when arrived. Pt refused pm treatment stating I just went for a walk with my girlfriend 1/[address] down the torre toward the stairs and back, did fine. I just got settled and waiting for culture results to go home. I dont feel I need to do anything further with therapy. FRUIT WORKER educated is on PT for 2x day and came to assist for the second treatment to continue to utilize mobility for self strength for functional independence. Pt was not seen for therapy this afternoon secondary to refusal. FRUIT WORKER asked NAC at nursing station if saw patient walking in the hallway with girlfriend but she stated, didn't.
--- NOTE | 2020-02-07 15:31 | PC.NURSE ---
Addendum entered by Claudia Maharaj R.N. 02/07/20 15:48: pain control with oxycodone vs po dilaudid. SO provided Rx of Dilaudid filled last night. Sent to Pharmacy for destruction. Provided with oxycodone Rx to fill prior to discharge. Original Note: Am Shift Pt is A/o x4, up ambulating in torre at start of shift, briefly. Pt reports that this is a follow up surgery, and Ill be better recovering at home today. I need culture results Verified POC and that culture results were pending. DENISSE Bethea manisha into see Pt and d/c orders are pending culture. PICC to RUE with plan to continue IV ABX at home for d/c. Dressing change to be done prior to d/c to PICC. MARIBELL working and intact to R knee. 2 areas of drainage, appears old and marked.
[2020-02-07] MEDS: DOXAZOSIN 2 MG TABLET PO (21:37)
[2020-02-08] MEDS: OXYCODONE IR 10 MG TABLET PO ×4 (04:14→19:07)
[2020-02-08 04:40] VITALS: BP 132/73; PULSE 79; RESP 16; TEMP 36.9; O2SAT 100
[2020-02-08] MEDS: SODIUM CHLORIDE 0.9% FLUSH 10 ML IV ×3 (05:00→22:05)
[2020-02-08] MEDS: CEFAZOLIN 2 GM/100 ML FROZ.PIGGY IV ×3 (05:00→20:50)
[2020-02-08] MEDS: VANCOMYCIN 1,500 MG/300 ML FROZ.PIGGY 200 MG IV ×3 (05:53→22:06)
[2020-02-08] MEDS: PANTOPRAZOLE 20 MG TABLET PO (05:53)
[2020-02-08 08:00] VITALS: BP 133/59; PULSE 72; RESP 16; TEMP 36.7; O2SAT 100
--- NOTE | 2020-02-08 08:12 | PM.PNPO.1 ---
Subjective Subjective Date Patient Seen: 02/08/20 Time Patient Seen: 09:00 Interval history: POD #4 s/p irrigation and debridement of soft tissue and bone using sharp dissection, explantation of R TKA, and Re-implantation of articualting spacer with abx impregnated cement with Dr. Dejesus. Patient complains of mild pain in knee. Patient's pain is well controlled with Oxycontin ER, and Oxycodone 10 mg. Denies fever, chills, dry cough, chest pain, shortness of breath, calf pain, nausea, vomiting. Exam Vital Signs (past 8 hours): - 02/08/20 04:40 Temperature 98.4 F Pulse Rate 79 Respiratory Rate 16 Blood Pressure 132/73 Pulse Oximetry 100 Oxygen Delivery Method Room Air Oxygen Flow Rate 0 Narrative Exam Narrative: Patient is sitting at bedside chair no acute distress. Alert oriented x3. SCDs in place. PICC line in place on RUE. Calves are soft, compressible, nontender bilaterally. Expected swelling a knee after surgery. Chad dressing intact and functioning with no increase in shadow drainage. He is able actively dorsiflex and plantar flex. Objective Labs Result Diagrams: 02/06/20 11:55 02/05/20 04:54 Assessment & Plan Post-op Postoperative Procedures: Procedures Operation Date: 02/04/20 13:15 Actual Procedures Side Surgeon p Revison total knee w/ removal of prosthesis w/ or w/out antibiotic spacer Right Chris Dejesus MD Postoperative plan narrative: Continue current pain control. He will continue to work with physical therapy. Awaiting culture results. Patient will discharge once cultures are completed. Time Spent With Patient Time with patient: less than 15 minutes Quality VTE Deep Vein Thrombosis/Pulmonary Embolism Present on Admission: No
[2020-02-08] MEDS: ACETAMINOPHEN 325 MG TABLET 650 MG PO ×3 (08:28→20:50)
[2020-02-08] MEDS: ASPIRIN EC 81 MG TABLET PO ×2 (08:29→20:50)
[2020-02-08] MEDS: OXYCODONE ER 10 MG TAB PO ×2 (08:29→20:50)
[2020-02-08] MEDS: DOCUSATE 100 MG CAPSULE PO ×2 (08:29→20:51)
--- NOTE | 2020-02-08 09:37 | PT-IP ANOTE ---
Pt in chair refusing to work with PT. States he has been up walking in the room and it is too painful. Also stated that he knows what to do and has been doing his exercises.Also stated he didn't receive pain medication and it is too painful right now.
[2020-02-08 12:00] VITALS: BP 113/63; PULSE 70; RESP 16; TEMP 36.7; O2SAT 99
--- NOTE | 2020-02-08 14:28 | PT-IP ANOTE ---
Pt in chair upon arrival. States he just had a shower and is waiting for a pain pill before getting up. States he will walk with family when they arrive.
[2020-02-08] MEDS: VANCOMYCIN TROUGH 1 REQUEST MISC (14:36)
[2020-02-08] MEDS: CYCLOBENZAPRINE 10 MG TABLET PO ×2 (14:53→19:07)
--- NOTE | 2020-02-08 15:03 | CM.DPC ---
Addendum entered by Thalia Schmidt R.N. 02/09/20 14:02: Spoke with Jagdish the pharmasist at [facility] and he said that because of the way [employer] and [employer] covers weekend IV antibiotic medications to start this weekend will be limited.. if patient is D/c on Vancomycin- (the medication he has been on here in the hospital) then their shouldn't be an issue and they can start that right away but if it is another medication they more then likely wont be able to start until Tuesday due to medication approval issues with [employer] and [employer]. How ever if patient is starting medication that only needs infusion once a day then he can get the dose here on tuesday and [facility] can start on Tuesday. Currently we do not have an antibiotic decided on for this patient. waiting on Culture and sensitivities to come back. Thalia Schmidt RN Original Note: DCP assessment: EMR Reviewed: CM/Rn Called [facility] and let them know that patient will most likely go home on IV Antibiotics this weekend. CM/RN sent clinicals for them to review and get services set up and once Antibiotic is known CM/RN will call Jagdish the pharmacist at [facility] to get medication set up for patient and family to do IV infusions at home. Patient updated and stated understanding. Thalia Schmidt RN
[2020-02-08 15:12] LABS: Vancomycin Trough 15.1 ug/mL (10-20)
[2020-02-08] MEDS: HYDROMORPHONE 0.5 MG INJ IV (16:48)
[2020-02-08 18:00] VITALS: BP 132/74; PULSE 81; RESP 20; TEMP 36.2; O2SAT 94
[2020-02-08 19:56] VITALS: BP 108/59; PULSE 70; RESP 18; TEMP 36.8; O2SAT 97
[2020-02-09] VITALS (8 sets, daily range): BP systolic 104–142; BP diastolic 64–88; PULSE 73–89; RESP 16–18; TEMP 35.8–36.8; O2SAT 97–100
[2020-02-09] MEDS: OXYCODONE IR 10 MG TABLET PO ×6 (00:29→23:36)
[2020-02-09] MEDS: SODIUM CHLORIDE 0.9% FLUSH 10 ML IV ×4 (00:29→23:42)
[2020-02-09] MEDS: CEFAZOLIN 2 GM/100 ML FROZ.PIGGY IV ×3 (05:30→20:41)
[2020-02-09] MEDS: PANTOPRAZOLE 20 MG TABLET PO (05:40)
[2020-02-09] MEDS: VANCOMYCIN 1,500 MG/300 ML FROZ.PIGGY 200 MG IV ×3 (06:34→21:40)
[2020-02-09] MEDS: HYDROMORPHONE 0.5 MG INJ IV ×2 (07:53→15:52)
[2020-02-09] MEDS: ASPIRIN EC 81 MG TABLET PO ×2 (08:37→20:41)
[2020-02-09] MEDS: ACETAMINOPHEN 325 MG TABLET 650 MG PO ×3 (08:37→20:41)
[2020-02-09] MEDS: DOCUSATE 100 MG CAPSULE PO ×2 (08:38→20:40)
[2020-02-09] MEDS: OXYCODONE ER 10 MG TAB PO ×2 (08:38→20:42)
--- NOTE | 2020-02-09 09:26 | PT-IP ANOTE ---
Pt refusing therapy this morning, spoke to pt on needs, pt states he feels like he knows what he needs to do and he is moving on his own. Pt agreeable to discharge therapy services even after pt was offered treatment once a day. Spoke to PT Laisha, pt will be discharged from PT services at this time.
[2020-02-09] MEDS: CYCLOBENZAPRINE 10 MG TABLET PO ×2 (10:25→23:36)
--- NOTE | 2020-02-09 11:05 | PM.PNPO.1 ---
Subjective Subjective Date Patient Seen: 02/09/20 Time Patient Seen: 09:00 Interval history: POD #4 s/p irrigation and debridement of soft tissue and bone using sharp dissection, explantation of R TKA, and Re-implantation of articualting spacer with abx impregnated cement with Dr. Dejeuss. Patient complains of mild pain in knee. Patient's pain is well controlled with Oxycontin ER, and Oxycodone 10 mg. Denies fever, chills, dry cough, chest pain, shortness of breath, calf pain, nausea, vomiting. Exam Vital Signs (past 8 hours): - 02/09/20 05:30 02/09/20 08:07 Temperature 96.5 F L 98.1 F Pulse Rate 77 89 Respiratory Rate 16 18 Blood Pressure 126/88 142/73 H Pulse Oximetry 99 100 Oxygen Delivery Method Room Air Oxygen Flow Rate 0 Narrative Exam Narrative: Patient is sitting at bedside chair no acute distress. Alert oriented x3. SCDs in place. PICC line in place on RUE. Calves are soft, compressible, nontender bilaterally. Expected swelling a knee after surgery. Aquacel dressing CDI. He is able actively dorsiflex and plantar flex. Objective Labs Result Diagrams: 02/06/20 11:55 02/05/20 04:54 Labs: Laboratory Results - last 24 hr 02/08/20 14:41 Vancomycin Trough 15.1 Assessment & Plan Post-op Postoperative Procedures: Procedures Operation Date: 02/04/20 13:15 Actual Procedures Side Surgeon p Revison total knee w/ removal of prosthesis w/ or w/out antibiotic spacer Right Chris Dejesus MD Postoperative plan: routine post-op care Postoperative plan narrative: Continue current pain control. He will continue to work with physical therapy. Awaiting culture results. Patient will discharge once cultures are completed. Time Spent With Patient Time with patient: less than 15 minutes Quality VTE Deep Vein Thrombosis/Pulmonary Embolism Present on Admission: No
[2020-02-09] MEDS: VANCOMYCIN PER PHARMACY 1 REQUEST MISC ×2 (12:57→14:01)
--- NOTE | 2020-02-09 17:44 | PC.NURSE ---
Pt pending cultures back this afternoon- all negative per lab. Per Dr Dejesus- pt needs home IV Abx of Vancomycin and then pt may be discharged. Please plan for case management to complete this setup in the am for pt to return home. Pt continues to be eager to leave- updated pt on plan.
[2020-02-10] MEDS: CEFAZOLIN 2 GM/100 ML FROZ.PIGGY IV (05:04)
[2020-02-10] MEDS: SODIUM CHLORIDE 0.9% FLUSH 10 ML IV ×2 (05:05→08:00)
[2020-02-10] MEDS: OXYCODONE IR 10 MG TABLET PO ×3 (05:13→13:47)
[2020-02-10] MEDS: VANCOMYCIN 1,500 MG/300 ML FROZ.PIGGY 200 MG IV ×2 (05:46→12:35)
[2020-02-10] MEDS: PANTOPRAZOLE 20 MG TABLET PO (06:53)
--- NOTE | 2020-02-10 07:44 | PC.NURSE ---
Patient was irritable during shift bedside report this morning. Feels he is getting the run around and desires to discharge. States he has a 2 hour window of time to get a ride. States has expectations to be able to contact home health staff etc. Tried to explain that there were no orders written yet concerning discharge . Patient was skeptical of this report.
[2020-02-10] MEDS: ACETAMINOPHEN 325 MG TABLET 650 MG PO ×2 (09:10→13:46)
[2020-02-10] MEDS: DOCUSATE 100 MG CAPSULE PO (09:10)
[2020-02-10] MEDS: OXYCODONE ER 10 MG TAB PO (09:10)
[2020-02-10] MEDS: ASPIRIN EC 81 MG TABLET PO (09:10)
[2020-02-10 12:00] VITALS: BP 110/70; PULSE 80; RESP 17; TEMP 36.6; O2SAT 96
[2020-02-10] MEDS: CYCLOBENZAPRINE 10 MG TABLET PO (13:52)
--- NOTE | 2020-02-10 14:00 | P.DS_ITS ---
History of Present Illness History of Present Illness Date Patient Seen: 02/10/20 Time Patient Seen: 14:00 Chief complaint: [id number] RIGHT RMVL PROSTH TOT KNEE Narrative: POD #5 s/p irrigation and debridement of soft tissue and bone using sharp dissection, explantation of R TKA, and Re-implantation of articualting spacer with abx impregnated cement with Dr. Dejesus. Patient is doing well, no complaints. Denies fever, chills, dry cough, shortness of breath, chest pain, nausea, vomiting. Discharge Providers Provider Date of admission: 02/04/20 10:42 Discharge Date: 02/10/20 Consults: 02/04/20 17:15 Consult to Discharge Planning Routine Comment: Consult to Physical Therapy Evaluate & Treat Comment: Physician Instructions: postop TKA protocol Consult to Respiratory Therapy Evaluate & Treat Comment: Physician Instructions: Evaluate and treat Discharge provider: Nida Bethea PA-C Summary Hospital Course Discharge Diagnosis: s/p irrigation and debridement of soft tissue and bone using sharp dissection, explantation of R TKA, and Re-implantation of articualting spacer with abx impregnated cement colitis diverticulosis hip pain, left hx of esophageal reflux hypertension osteoarthritis Hospital Course: Indications: 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 Dejesus. POD #5 patient was ready for discharge home with home health services. Patient stayed in hospital and was treated with IV antibiotics until final cultures returned. Infectious Disease at [facility] was consulted for antibiotic recommendations - IV Vancomycin 1500mg q8hr x 6 weeks, with follow up at ID clinic in 1 week. Patient's pain was well managed with oxycontin and oxycodone. Sent home with prescription for oxycodone 10mg. Voiding and eating without difficulty or assistance prior to discharge. Mobilizing with physical therapy prior to discharge. ASA 81mg BID for 6 weeks for DVT prophylaxis. Status at Discharge Cognitive/behavioral status at discharge: at baseline, oriented Functional status at discharge: uses cane/walker Overall status at discharge: patient is progressing back to baseline Exam Vital Signs (past 8 hours): Oxygen Delivery Method Room Air Oxygen Flow Rate 0 Narrative Exam Narrative: Patient is sitting at bedside chair no acute distress. Alert oriented x3. SCDs in place. PICC line in place on RUE. Calves are soft, compressible, nontender bilaterally. Expected swelling a knee after surgery. Aquacel dressing CDI. He is able actively dorsiflex and plantar flex. Objective Labs Result Diagrams: 02/06/20 11:55 02/05/20 04:54 Discharge Plan Discharge Plan Patient Disposition: Home Health Service Transfer to: [facility] Discharge comment: Follow up with [facility] in 1 week / Follow up with [facility] - Infectious Disease in 1 week / Discharge orders & Medications Prescriptions: New docusate sodium [DOK] 100 mg Capsule 100 mg PO BID Qty: 60 RF: 0 acetaminophen 325 mg Tablet 650 mg PO TID Qty: 60 RF: 0 oxycodone [OxyContin] 10 mg Tablet,Oral Only,Ext.Rel.12 Hr 10 mg PO BID Qty: 30 RF: 0 vancomycin-water inject (PEG) 1.5 gram/300 mL Piggyback 1,500 mg IV Q8HR 42 Days RF: 0 oxycodone 10 mg tablet 10 mg PO Q4-6H PRN (Reason: pain (scale score 7-10)) Qty: 40 RF: 0 Continued doxazosin 2 mg tablet 2 mg PO BEDTIME RF: 0 cyclobenzaprine 10 mg Tablet 10 mg PO TID PRN (Reason: Muscle Spasm) Qty: 30 RF: 0 aspirin 81 mg Tablet,Delayed Release (Dr/Ec) 81 mg PO BID Qty: 60 RF: 0 Discontinued acetaminophen 325 mg Tablet 975 mg PO TID Qty: 60 RF: 0 Follow up/Referrals: Chris Dejesus MD [Physician] - (Follow up in 10-14 days) Diet/Activity/Treatments Diet: Regular Activity: Weightbearing as tolerated Cold/Heat Therapy: Continue cold therapy as needed Skin/Wound/Dressing Care Report to your healthcare provider any signs of infection, such as:: chills, fever, increased pain, unusual drainage and unusual redness Dressing: Aquacel dressing can be used in shower. Do not soak (e.g. bath). Contact office for dressing changes Visit Report/Discharge Packet Instructions: DI for Knee Replacement, DI for Prescription Opioid Use Stand Alone Forms: Surgery Discharge Discharges patient from system. Discharge Date/Time: 02/10/20 14:40 Quality VTE Deep Vein Thrombosis/Pulmonary Embolism Present on Admission: No
--- NOTE | 2020-02-10 14:12 | PC.NURSE ---
Addendum entered by Shruti Ness R.N. 02/10/20 14:21: Pt had Rx for oxycodone filled prior to surgery. Rx that was written by DENISSE Bethea was ripped up and put in shredder, witnessed by Viktoria VICTORIA. Original Note: Discharge Pt states pain is controlled with oxy and flexeril. Up independently. Pt leaving with PICC In place. Plan for [facility] to meet at pt's house at 1600. Pt leaving with all his belongings. has f/u apt in place with MD. Aware to contact MD with any additional questions or concerns as well. D/c instructions provided to pt. Pt left in w/c with ADJUSTO WRITER OPERATOR escort to car with his GF and mother.
--- NOTE | 2020-02-10 14:44 | CM.DPC ---
DCP/continued: Received notification from Orthopedic PA that patient okay to d/c home today with IV vancomycin 1.5 gram every 8hrs for 42 days. Placed call to [facility] as they have been given referral and following. Spoke with pharmacist/Jagdish. Faxed copy of script and updated labs. [facility] plans to meet patient at his residence this afternoon to provide abx and teach. Next dose not due until around 10:00pm. In addition, to the above placed call to [facility] . They were set up prior to patient's hospitalization. They report that they have everything they need except d/c summary. Notified [facility] that when d/c summary becomes available will fax. Patient provided brochures for both [facility]. No additional needs identified. P: Home today with the above services in place. NITZA Avendano
--- NOTE | 2020-02-12 09:22 | CM.DPC ---
DCP Cont: Faxed discharge summary to [facility] at fax # [phone]. Fax confirmation scanned in. Candelaria Noel, Care Cloth Grader
== END 2020-02-10 14:40 | disposition home health service (06) | DRG 302 ==
PROVIDERS: Orthopaedic Surgery Adult Reconstructive Orthopaedic Surgery; Physician Assistant Medical; Admitting Provider Orthopaedic Surgery; Referring Provider Orthopaedic Surgery; Visit Provider Orthopaedic Surgery
PROC: 0SRC0EZ Replacement of Right Knee Joint with Articulating Spacer, Open Approach (ICD-10-PCS; principal; 2020-02-04 13:15)
DX: T84.53XA Infection and inflammatory reaction due to internal right knee prosthesis, initial encounter (principal); I10 Essential (primary) hypertension
CPT/HCPCS: 36415; 36573; 71045; 73560; 80202; 82565; 85014; 85018; 85025; 87070; 87075; 87077; 87147; 87176; 87186; 87205; 87801; 97116; 97162; C1776; J0690; J1100; J1170; J1642; J1885; J2060; J2250; J2270; J2405; J2704; J2765; J2795; J3010; J3410

== ENCOUNTER → 2020-05-30 08:29 | Outpatient (CLI) | payer OTHER, SELFPAY ==
[2020-02-04 18:21] VITALS: BMI 38.0
[2020-05-30 22:25] LABS: COVID19 Sendout Not Detected (Not Detect)
== END ==
PROVIDERS: Visit Provider Nurse Practitioner
DX: Z01.812 Encounter for preprocedural laboratory examination (principal)
CPT/HCPCS: 87635

== ENCOUNTER 2020-06-02 08:12 | Inpatient (IN) | payer OTHER, SELFPAY ==
[2020-02-04 18:21] VITALS: BMI 38.0
[2020-05-16 07:36] VITALS: BMI 38.0
[2020-06-02] VITALS (17 sets, daily range): BP systolic 120–162; BP diastolic 80–100; PULSE 68–91; RESP 8–19; TEMP 36.3–37.2; O2SAT 90–100; BMI 40.6
[2020-06-02] MEDS: LACTATED RINGERS 1,000 ML 42 ML IV ×3 (08:58→14:36)
[2020-06-02] MEDS: GABAPENTIN 300 MG CAPSULE PO (09:11)
[2020-06-02] MEDS: ACETAMINOPHEN 325 MG TABLET 975 MG PO (09:11)
--- NOTE | 2020-06-02 10:41 | P.OP.PRE_ITS ---
Pre-operative Note COVID-19 COVID-19 status: Negative Result date/Date tested (Pos, Neg/Pending): 05/30/20 Interval Note History & Physical reviewed/Exam performed by Physician: Yes Changes to H&P: No H&P completed within 30 days and has changed as indicated here:: Plan for 2nd stage revision of R ADRIANNE for PJI. Patient's email [email or web address]
[2020-06-02] MEDS: CEFAZOLIN 2 GM/100 ML FROZ.PIGGY IV ×2 (11:25→15:17)
[2020-06-02] MEDS: CEFAZOLIN 1 GM VIAL IV (11:45)
[2020-06-02] MEDS: TRANEXAMIC ACID 1,000 MG VIAL 2000 MG INJ ×2 (11:45→15:04)
--- NOTE | 2020-06-02 12:00 | SUR.OPER ---
Supine on padded OR bed. Pillow under head, arms secured on padded armboards <90 degree abduction. Safety belt across torso. Non-operative leg secured with tape over blanket over lower leg. Operative drapped free Foam padded brace attached to table for positioning operative leg, bump under hip of operative leg
[2020-06-02] MEDS: ROPIVACAINE 0.5% PF 20ML 60 ML, MORPHINE 4 MG, KETOROLAC 30 MG INJ (12:26)
[2020-06-02] MEDS: VANCOMYCIN 1,000 MG VIAL 1000 MG TOP (14:39)
--- NOTE | 2020-06-02 15:39 | P.OP_ITS ---
Operative Date/Time/Diagnoses Date of procedure: 06/02/20 Time of procedure: 15:40 Pre-op diagnosis: Prosthetic joint infection Post-op diagnosis: same Procedure & Clinicians Procedure: 2nd stage revision of right TKA PJI Same procedure as scheduled: Yes Indications: Patient is a 49-year-old male who underwent a right total knee arthroplasty last year which was subsequently complicated by infection. He subsequently underwent removal of the primary total knee with the placement of the articulating spacer. He is here today for revision of the spacer to a second-stage revision Surgeon: Chris Dejesus Jigsaw Operator: Sai Rojo Anesthesia Type: General Operative Notes Findings: Moderate effusion. No gross purulence Closure Type: non-primary Specimen(s): other (2x cultures) Prosthetic devices, grafts, tissues, transplants, or devices: Schmidt and Nephew size 7 right legion Oxinium constrained femoral component 15 mm x 160 mm legion Press-Fit stem 2 mm legion offset optical lab technician Size 5-6 13 mm maria g 2 constrained liner 32mm oval patellar button Size 6 right legion revision tibial base plate 2 mm legion offset optical lab technician 12 mm by 160 mm legion Press-Fit stem Estimated Blood Loss (mL): 600 Tourniquet time (min): 38 Procedure in detail: Patient was met the preoperative holding area the site and side of surgery were marked by . Informed consent had been signed in clinic but was reviewed in the preoperative holding area as well. All last minute questions were answered. Patient was then brought back in the operating room where he was induced under general anesthesia after being transferred onto the operating room table. Bony prominences well well padded. A right thigh tourniquet was placed nonsterile. His right lower extremity then prepped and draped in normal sterile fashion. A surgical time-out was performed verifying the site and side of surgery as well as the name of the patient. His previous surgical site was marked. A 10. Blade was used to go through the old surgical incision and was extended proximally 1 cm proximally and distally. Medial and lateral flaps were elevated in a medial parapatellar arthrotomy was performed at this point there was a moderate effusion which was clear colored. Two cultures were taken and sent to microbiology. The medial and lateral gutters were cleaned and a medial peel was performed. The patella was not able to be totally everted but was able to translate out of the way. We began work on the femoral component we used revision saw blades to loosen up the cement bone interface both medially and laterally we then worked to loosen the p rosthesis further with flexible thin osteotomes once this was completed we used a bone tamp from the superior aspect of the femoral component to tamp down on the anterior flange and we have them remove the femoral component in this fashion. We had very minimal bone loss. We then turned our attention to the tibial side the polyethylene was able to be free from the cement using revision saw blades and a bone tamp. And the cement was able to be removed with a cement flag and rongeur. We started with the tibial side by sitting down canal reamers on hand power. Short with a size 8 and up sized to a size 12. This gave good stability. We then placed our revision cutting guide off of this intramedullary piotr and took a skimming revision tibial cut. This was sized to a size 6. We reamed for the tibial stem and also for the 2 mm offset optical lab technician which was placed roughly at the 1 o'clock position. The tibial rotation was then set and the tibial base plate was punched. Then returned our attention to the femoral side began hand reaming with a size 8 up to a size 15. We then placed our revision cutting block off of this intramedullary guide and took skimming distal femoral cuts. At this point we considered distalizing the femoral component as well as posterior as in the femoral component to match our flexion extension gaps and restore the joint line. This was complicated by the fact that the size 8 femoral component is not compatible with the size 6 tibial base plate in a constrained liner. We then elected to go with a size 7 femoral component which did not have distal or post erior augments. Although we were not able to fully restore the joint line we were able to balance our flexion-extension gaps 5 posterior rising the size 7 component 2 mm. The rotation was set using static locks. Seven 1 cutting guide was then pinned in place and ischemic anterior cut was performed as well as our chamfer and posterior condylar cuts. The patella was then cut using a minimal skimming cut. And was sized and drilled for size 32 mm oval button. At this point we trialed with a size 11 mm thick poly and had good stability however it appeared that we were hype extending. We then trialed a size 13 and this restored our extension. The trial components were removed final implants were selected these were assembled on the back table. Local anesthetic was then infiltrated into the posterior capsule as well as the medial lateral aspects of the knee. Pulse lavage was used to clean the bone ends and the tourniquet was insufflated. Antibiotic impregnated bone cement was then finger packed onto the tibial cut surface as well as the backside surface of the tibial base plate and the optical lab technician. This was then malleted into place. Excess cement was removed. Next cement was finger packed onto the cut surface of the femoral component with exception of the posterior condyle. Cement was placed on the posterior condylar feet of the femoral component the femoral component was then malleted into place and excess cement was removed. A size 11 mm thick poly trial was then placed and the knee was brought into full extension the patella was then cemented and clamped in place as well. Betadine solution was placed in the wound and allowed to soak during the duration of cement curing. Once the cement was cured pulse lavage was used to irrigate away the Betadine solution and the tourniquet was let down. Hemostasis was able to be achieved using electrocautery. We trialed 1 more time with a 13 mm thick constrained tibial poly and were happy with the range of motion and stability. This was selected and the final poly 13 mm thick was placed and verified to locking the tibial base plate. Patella tracked well through range of motion. 1 g of vancomycin was placed into the knee joint we began closing the medial parapatellar arthrotomy using 1. Vicryl interrupted interrupted fashion followed by a running Quill suture. Two 0 Vicryl was then used on the subcutaneous layer followed by kenya on the skin and Aquacel dressing. Complications: none Post-operative Condition: stable Disposition: PACU Plan for aftercare: 24 hours post-op abx, 6 weeks ASA 81mg BID, WBAT RLE
--- NOTE | 2020-06-02 15:52 | DI.RAD.S_ITS ---
PROCEDURE: XR KNEE RT 1TO2V INDICATIONS: POST OP RIGHT KNEE REVISION TECHNIQUE: 2 view(s) of the knee acquired. COMPARISON: [facility], CR, XR KNEE RT 1TO2V, 02/04/2020, 17:19. [facility], CR, XR KNEE RT 1TO2V, 05/02/2019, 15:49. FINDINGS: Bones: Patient is status post knee joint arthroplasty. Hardware components are in expected positions. Visualized bony structures are intact. Soft tissues: Overlying postoperative changes are noted. IMPRESSION: Normal appearance of right total knee arthroplasty components after revision arthroplasty with reference to the earlier plain film imaging from 02/04/20 and 05/02/19. Dictated by: Devang Mixon M.D. on 06/02/2020 at 16:41 Approved by: Devang Mixon M.D. on 06/02/2020 at 16:43
[2020-06-02] MEDS: fentaNYL 100 MCG/2 ML INJ IV (15:53)
[2020-06-02] MEDS: HYDROMORPHONE 2 MG INJ IV ×4 (15:56→16:31)
[2020-06-02] MEDS: hydrOXYzine 50 MG/ML INJ 25 MG IM (16:15)
--- NOTE | 2020-06-02 16:21 | SUR.PHASEI ---
entered PACU trying to take off his mask, moaning in pain, diaphoretic and warm to touch. Report received, Rx initiated after assessment. Pt has become much more calm with occasional moan or gasp. Tense, holding breath, reminded to breath on occasion. Put on O2 for satof 90% but he rebounds spontaneously to 97% prior to O2. Declined ice chips or PO fluids. Currently resting calmly.
[2020-06-02] MEDS: OXYCODONE IR 5 MG TABLET PO (16:32)
--- NOTE | 2020-06-02 16:33 | SUR.PHASEI ---
rates pain 7/10, calm, relaxed with occasional gasp,eating crackers and water in prep for porx.
--- NOTE | 2020-06-02 16:46 | SUR.PHASEI ---
Declines any more IV med so that he can get to his room and see Kay. See pain assessment
--- NOTE | 2020-06-02 17:12 | SUR.PHASEI ---
to room 213, bed down and locked, call light within reach. O2 on at 2LNP, SCDs on. Clothing bag to room, pt wearing his glasses. Pt quiet, calm, relaxed. Stable.
[2020-06-02] MEDS: OXYCODONE IR 10 MG TABLET PO ×2 (17:40→21:04)
[2020-06-02] MEDS: LACTATED RINGERS 1,000 ML 100 ML IV (17:41)
[2020-06-02] MEDS: CALCIUM CARBONATE 500 MG TAB PO (21:04)
[2020-06-02] MEDS: ACETAMINOPHEN 325 MG TABLET 650 MG PO (21:04)
[2020-06-02] MEDS: CEFAZOLIN VIAL 3 GM in SODIUM CHLORIDE 0.9% 100 ML 200 ML IV (21:04)
[2020-06-02] MEDS: ASPIRIN EC 81 MG TABLET PO (21:04)
[2020-06-02] MEDS: DOCUSATE 100 MG CAPSULE PO (21:04)
[2020-06-02] MEDS: CYCLOBENZAPRINE 10 MG TABLET PO (21:11)
[2020-06-02 21:44] LABS: Add Manual Diff / Slide Review NO; Basophils Absolute Auto 100 /uL (0-100); Basophils Percent Auto 0.6 % (0-2); Eosinophils Absolute Auto 0 /uL (0-450); Hematocrit 37.5 % (41-53); Hemoglobin 12.3 g/dL (13.5-17.5); Lymphocytes Absolute Auto 800 /uL (1100-4500); Mean Corpuscular HGB Conc 32.8 % (30-36); Mean Corpuscular Hemoglobin 30.3 PG (26-34); Mean Corpuscular Volume 92.2 fL (80-100); Monocytes Absolute Auto 900 /uL (0-900); Monocytes Percent Auto 5.7 % (3-14); Neutrophils Absolute Auto 14200 /uL (1500-7000); Neutrophils Percent Auto 88.7 % (50-75); Platelet Count 305 X10^3/uL (150-400); Red Blood Cell Count 4.07 X10^6/uL (4.5-5.9); Red Cell Distribution Width 15.6 % (11.6-14.8)
--- NOTE | 2020-06-02 23:44 | PC.NURSE ---
Post-op notes: Pat brought from PACU via hospital bed, float RN in room to do admission assessment. He is awake, Ox3, pleasant & conversive. R knee is CDI, kraig wrap over MARIBELL drsg/drain, tubing coming out of proximal knee drsg and connected to MARIBELL box which is blinking green. Ice packs in place. Pt reports fair pain control after taking PO oxycodone, rated pain at 6, but then said he was tolerating the pain & could wait for meds when they are due. Requested to stay on time with prn pain medication, pain med next due written on white board. Has been up to BR, ambulating with 1 person SBA, fww & gait belt. Voiding with no difficulty. Back to bed, fall precautions in place, alarm active for safety, pt reminded to call staff for any needs/concerns or if needs OOB. spending night, sleeping in recliner.
[2020-06-03] MEDS: OXYCODONE IR 10 MG TABLET PO ×4 (00:06→09:11)
[2020-06-03] MEDS: CALCIUM CARBONATE 500 MG TAB PO ×2 (00:07→09:14)
[2020-06-03] MEDS: CEFAZOLIN VIAL 3 GM in SODIUM CHLORIDE 0.9% 100 ML 200 ML IV (03:17)
[2020-06-03] MEDS: LACTATED RINGERS 1,000 ML 100 ML IV (03:20)
[2020-06-03 03:32] VITALS: BP 118/74; PULSE 73; RESP 18; TEMP 37; O2SAT 98
[2020-06-03 06:03] LABS: Hematocrit 33.5 % (41-53); Hemoglobin 11.2 g/dL (13.5-17.5)
[2020-06-03] MEDS: CYCLOBENZAPRINE 10 MG TABLET PO (06:08)
--- NOTE | 2020-06-03 06:39 | PC.NURSE ---
Pt doing well. States he has pain on right leg going skilled nursing down his lyman Mobilizing well with SBA FWW to BR MARIBELL is working properly. no drainage noted. LR@100mL/hr
--- NOTE | 2020-06-03 07:19 | P.DS_ITS ---
History of Present Illness History of Present Illness Date Patient Seen: 06/03/20 Time Patient Seen: 07:20 Chief complaint: RT TKA 06/02 Narrative: Patient was admitted for revision R TKA yesterday. Doing OK. Pain control issues (at baseline). HAs not yet worked with PT. Discharge Providers Provider Date of admission: 06/02/20 08:12 Discharge Date: 06/03/20 Consults: 06/02/20 08:57 Consult to Respiratory Therapy Evaluate & Treat Comment: Physician Instructions: Evaluate and treat 06/02/20 08:59 Consult to Respiratory Therapy Evaluate & Treat Comment: Physician Instructions: Evaluate and treat 06/02/20 17:14 Consult to Discharge Planning Routine Comment: Consult to Physical Therapy Evaluate & Treat Comment: Physician Instructions: postop TKA protocol Consult to Respiratory Therapy Evaluate & Treat Comment: Physician Instructions: Evaluate and treat Discharge provider: Chris Dejesus MD Summary Hospital Course Discharge Diagnosis: s/p 2nd stage revision right TKA for PJI Hospital Course: Patient was admitted for revision R TKA yesterday. Doing OK. P ain control issues (at baseline). HAs not yet worked with PT. Status at Discharge Cognitive/behavioral status at discharge: oriented Functional status at discharge: uses cane/walker Overall status at discharge: patient is progressing back to baseline Time Spent with Patient Time spent: Less than 30 minutes Exam Vital Signs (past 8 hours): - 06/03/20 03:32 Temperature 98.6 F Pulse Rate 73 Respiratory Rate 18 Blood Pressure 118/74 Pulse Oximetry 98 Oxygen Delivery Method Room Air Oxygen Flow Rate 0 Narrative Exam Narrative: NV intact RLE, large effusion right knee. Objective Labs Result Diagrams: 06/03/20 05:55 Labs: Laboratory Results - last 24 hr 06/02/20 06/03/20 21:35 05:55 WBC 16.0 H RBC 4.07 L Hgb 12.3 L 11.2 L Hct 37.5 L 33.5 L MCV 92.2 MCH 30.3 MCHC 32.8 RDW 15.6 H Plt Count 305 Neut % (Auto) 88.7 H Lymph % (Auto) 5.0 L [place] % (Auto) 5.7 Eos % (Auto) 0.0 L Baso % (Auto) 0.6 Neut # (Auto) 23567 H Lymph # (Auto) 800 L [place] # (Auto) 900 Eos # (Auto) 0 Baso # (Auto) 100 Discharge Plan Discharge Plan Patient Disposition: Home Discharge comment: DC home when cleared by PT Discharge orders & Medications Prescriptions: New cyclobenzaprine 10 mg Tablet 10 mg PO TID PRN (Reason: Muscle Spasm) Qty: 60 RF: 0 aspirin 81 mg Tablet,Delayed Release (Dr/Ec) 81 mg PO BID Qty: 84 RF: 0 oxycodone 10 mg Tablet 10 mg PO Q4HR PRN (Reason: Pain (Scale Score 7-10)) Qty: 60 RF: 0 Continued acetaminophen 325 mg Tablet 650 mg PO TID Qty: 60 RF: 0 pantoprazole 20 mg tablet,delayed release (DR/EC) 20 mg PO DAILY RF: 0 Discontinued cyclobenzaprine 10 mg Tablet 10 mg PO TID PRN (Reason: Muscle Spasm) Qty: 30 RF: 0 aspirin 81 mg tablet,delayed release (DR/EC) 81 mg PO DAILY RF: 0 hydrocodone-acetaminophen 10-325 mg Tablet 1 tab PO BID PRN (Reason: Pain) RF: 0 Follow up/Referrals: Chris Dejesus MD [Physician] - 2 Weeks Diet/Activity/Treatments Diet: Regular Activity: WBAT RLE, work on gentle ROM Other treatments: elevate and ice [address] a towel between your skin and ice to prevent langston. Skin/Wound/Dressing Care Dressing: Leave dressing in place until follow up visit. Ok to shower over the top of the dressing. Do not soak (bath) Visit Report/Discharge Packet Instructions: DI for Knee Replacement, DI for Prescription Opioid Use Stand Alone Forms: Surgery Discharge
[2020-06-03 07:54] VITALS: PULSE 80; RESP 16; O2SAT 99
[2020-06-03] MEDS: PANTOPRAZOLE 20 MG TABLET PO (08:17)
[2020-06-03 08:43] VITALS: BP 151/100; PULSE 82; RESP 18; TEMP 36.6; O2SAT 99
--- NOTE | 2020-06-03 08:52 | PT.IIE ---
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, subsequent encounter (06/02/20) Surgery Performed Operation Date: 06/02/20 10:45 Actual Procedures p Total Knee Arthroplasty Revision(Right) - Chris Dejesus MD Surgical History (Last Updated 01/31/20 @ 12:41 by Yovana Hale RN) History of arthroplasty of right knee (Acute 05/02/19) History of esophagogastroduodenoscopy (EGD) (Acute) S/P ACL reconstruction (Acute ~1991) Medical History (Last Updated 05/16/20 @ 07:36 by Yovana Hale RN) Colitis (Acute) Diverticulosis (Acute) Hip pain, left (Acute) History of esophageal reflux (Acute) Hypertension (Acute) 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 Able to amb for grocery shopping without a break Activities of Daily Living and IADL's independent with all ADLs and IADLs. Works [employer] Social History Household Members significant other Living Arrangements House Number of Floors (Floors) One Floor Number of Stairs To Enter/Railing? 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 Pt used to lives in an but currently living at his in laws. The house has no PANFILO and one level. Pt will have family with him for assistance as needed. 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 He will participate outpatient PT at [facility] in two weeks. M2 PT-IP Current Condition Start: 06/03/20 08:04 Freq: NEEDED Status: Active Protocol: Document 06/03/20 08:35 HH (Rec: 06/03/20 08:52 [id number]) Physical Therapy Current Condition Current Condition Evaluation Date 06/03/20 Treatment Diagnosis revision of R TKA, difficulty in walking. Onset Date 06/02/20 Weight Bearing Status Weight Bearing Status Weight Bear as Tolerated M3 PT-IP Subjective Start: 06/03/20 08:04 Freq: NEEDED Status: Active Protocol: Document 06/03/20 08:35 (Rec: 06/03/20 08:52 [id number]) Subjective Physical Therapy Visit Type Type Initial Evaluation Visit Start Time 08:15 Visit Stop Time 08:33 Total Visit Minutes 18 Notes Pt's significant other at bedside to assist Number of MACHINE CELL TUBER Visits 0 Physical Therapy Visit Comments Patient Comments Im feeling better this time but i do feel the pain into my bone. Patient Goals to return home with his S.O. Therapy Pain Assessment Pain When Pain Assessed During Mobility Pain Present Pain Present Pain Reported Location right knee Intensity 3 Scale Used Numeric (0 - 10) Description Aching,Acute Pain Management Techniques Timing of Activity with Medications M4 PT-IP Mobility and Gait Start: 06/03/20 08:04 Freq: NEEDED Status: Active Protocol: Document 06/03/20 08:35 (Rec: 06/03/20 08:52 [id number]) PT-Bed Mobility Assessment Supine to Sit Supine to Sit Standby Assistance Scooting Scooting to Edge of Bed Standby Assistance PT-Transfer Assessment Sit to and From Stand Sit to and from Stand Standby Assistance,Use of Upper Extremities Equipment Transfer Assistive Device Gait Belt,Front Wheeled Walker Orthotic/Prosthetic Devices or Brace: No Transfers Transfer Destination Bed,Chair Transfer Technique Stand Step Pivot Transfer Ability Level of Assist Standby Assistance,Use of Upper Extremities Comments Mobility Comments Pt was in bed upon PT arrival. Significant other at bedside to assist. Pt agreed to mobilize with PT and stated he is ready to be d/c home. He completed supine to long sit and S.O. assisted him to pivot his RLE towards EOB. S.O. then helped pt to galindo socks and shoes at bedside. Pt practiced seated heel slide afterward but he has only approx 60 degrees of knee AROM . He then completed sit to stand with staggered stance and used walker for push off with SBA. He was able to amb in the hallway afterwards with SBA. Pt demonstrated WBOS with limited knee flexion for push off. Cues was given to faciltiate preswing and initial swing phases and he was able to improve his gait efficiency. Pt amb approx 260 ft around [facility] with FWW without much increase in pain. He safely return to bedside chair after with a staggered stance. This PT went over home ex program and both pt and S.O. show good understanding. Notified JULIEN Carranza that pt is safe to go home at this point. Gait Assessment Gait Gait Assistance Required: Standby Assistance Distance (Feet) 260 Able to Maintain Weight Bearing Status Yes During Gait Assistive Devices Assistive Device Gait Belt,Front Wheeled Walker Orthotic/Prosthetic Devices or Brace: No Gait Deviations General Gait Pattern Antalgic,Decreased Stride Length,Decreased Feet Clearance,Lateral Trunk Lean, Wide Based Gait Factors Limiting Gait Function Factors Limiting Gait Function Decreased Activity Tolerance, Decreased Strength,Limited Range of Motion,Pain,Poor Balance Comments Gait Comments see mobility comments Stair Climbing Assessment Comments Stair Climbing Comments pt has no PANFILO PT-Balance Assessment Sitting Balance and Reactions Static Sitting Balance Ability Normal Dynamic Sitting Balance Ability Normal Standing Balance and Reactions Static Standing Balance Ability Good Dynamic Standing Balance Ability Good Device Used FWW M5 PT-IP Objective Assessments Start: 06/03/20 08:04 Freq: NEEDED Status: Active Protocol: Document 06/03/20 08:35 (Rec: 06/03/20 08:52 [id number]) Orientation Orientation/Cognition Level of Alertness Alert Orientation Name,Age,Birthday,Month,Date, Year,Day of Week,Place, Situation Language Function Ability No Deficits Noted Safety Awareness Understands Safety Issues Memory Description No Deficits Noted Gross Range of Motion Upper Extremity ROM Assessment Within Functional Limits Lower Extremity ROM Assessment Right Impaired Impairments 15- 60 R knee AROM Strength Upper Extremity Strength Assessment Within Functional Limits Lower Extremity Strength Assessment Right Impaired Hip 4/5 Knee 4-/5 Ankle 5/5 Coordination Assessment Gross Coordination Gross Coordination WNL Sensation Assessment Sensation Gross Sensation WNL Muscle Tone Muscle Tone WNL Yes M6 PT-IP Treatment Start: 06/03/20 08:04 Freq: NEEDED Status: Active Protocol: Document 06/03/20 08:35 (Rec: 06/03/20 08:52 [email or web address]) Physical Therapy Treatment Exercises Exercises Ankle Pumps,Gluteal Sets,Quad Sets,Heel Slides Education Education Provided Precautions,Weight Bearing Status,Post-Op Packet,Safety M7 PT-IP Assessment and Plan Start: 06/03/20 08:04 Freq: NEEDED Status: Active Protocol: Document 06/03/20 08:35 (Rec: 06/03/20 08:52 [email or web address]) PT Summary Assessment and Plan Potential Rehabilitation Potential Excellent Status of Condition at Evaluation Stable Summary Impairments Pain,ROM,Strength,Balance,Bed Mobility,Transfers,Gait, Activity Tolerance Progress Towards Goals Safe For Discharge Assessment Summary This is low complexity evaluation for this 49 yo male s/o revision of his R TKA. Pt had his first TKA last year followed by an I&D procedure early this january d/t infection . Pt currently stays at his in laws' house which is handicapped accessible. Pt also has adequete family support to assist as needed. Upon assessment, pt did very well in terms of overall mobility with FWW, but his R knee AROM is approx 15-60 degrees which affects his gait mechanics during swing phase. Encourage pt to work on his AROM at home prior to outpatient therapy. At this point, pt is safe to d/c home with his S.O. Frequency of Treatment Frequency Of Treatment Discharge Recommendations To Nursing Amount of Assist Needed Standby Assistance Discharge Recommendations PT Discharge Recommendations Home with Assistance, Outpatient PT Transportation Needs at Discharge Private Vehicle
[2020-06-03] MEDS: ACETAMINOPHEN 325 MG TABLET 650 MG PO (09:11)
[2020-06-03] MEDS: ASPIRIN EC 81 MG TABLET PO (09:11)
[2020-06-03] MEDS: DOCUSATE 100 MG CAPSULE PO (09:11)
--- NOTE | 2020-06-03 09:39 | PC.NURSE ---
Addendum entered by Tere Hughes R.N. 06/03/20 10:03: Pt left unit at 0946 in no distress via wheelchair with [employer] escort, all belongings, and pt's at side to drive pt home. Original Note: Day Shift- pt A&OX4, wants to go home this AM. Spoke with Dr. Dejesus this AM around 0730, request to order pt's home meds of Protonix. Right knee MARIBELL dressing CDI- battery pack has green intermittent flashing light, kraig wrap in place. CMS+. PPP. Pain controlled with PRn Flexeril and Oxycodone. Pain management plan discussed. Pt states has stool softeners already at home, discussed prevent constipation. Prescriptions given to pt's per pt request so she could take to [facility] in [place] to get filled. Discharge summary packet reviewed with pt and his at bedside, no further voiced concerns. States has all belongings.
--- NOTE | 2020-06-03 10:43 | CM.DANOTE ---
DCP/Assessment: Reviewed chart. Patient is a 49yr old male admitted to [facility] for elective revision of right TKA performed on 06-02-[address] Dejesus. No PCP listed. Primary payor is 1)L&I. Attempted to meet patient this AM, patient had already been discharged and left [facility] at time of visit. Per RN in AM rounds there were no anticipated d/c planning needs. P: Home today. NITZA Avendano Discharge Planning/Care Management CM Discharge Assessment Start: 06/03/20 10:38 Freq: Status: Discharge Protocol: Document 06/03/20 10:38 KJS (Rec: 06/03/20 10:43 KJS [id number]) Discharge Planning Assessment Assigned Shoe Cementer NITZA Avendano Contact Information Candy Rojo (life partner) [phone] Advance Directives? No History Provided By Medical Record Prior Living Arrangements House Household Members significant other Type of transporation used prior to Drives own vehicle admit Independent with ADL's Yes Is patient alert and oriented? Yes DME Already Rented / Owned FWW / Walker,Cane Patient/Family Preference OP PT Therapy Barriers to Discharge No Discharge Plan Home Transportation Arrangement Family Referrals Initiated None needed Review Status In Process Next Review Type Continued Stay Review Pre-Anesthesia Assessment Start: 05/16/20 07:36 Freq: Status: Complete Protocol: Document 05/16/20 07:36 CAB (Rec: 05/16/20 07:57 CAB [id number]) Pre-Anesthesia Assessment PAC Comment Pt very upset that his S.O. cannot wait in hospital during surgery. Explained she can join him once in AC room. Pt adamnt that she be allowed in the hospital. Offered to transfer him to Admin/Reinforcing [employer] to review hospital policy, he declined, states he 's calling his surgeon to discuss. Patient Information Reviewed Via Phone Assessment Assessment Completed With Patient Comment COVID screen scheduled @ 05/30/20 Primary Care Provider Denny Williamson Seen Specialist in Last 12 Months Yes Specialist Seen Orthopedist Primary Language Swazi Preferred Language Swazi Supervisor Floor Assembly Required No Height 181.61 cm Weight 125.645 kg Body Mass Index (BMI) 38.0 Hearing Ability Hard of Hearing Visual Impairment Severely Limited Visual Assist Glasses Dentition Type Teeth, Natural Present,Teeth, Broken Barriers to Learning Auditory,Visual Hx Anesthesia Reactions Yes: Numbness to upper buttocks w/spinal 3/9/20 Hx Family Anesthesia Reaction No: Unknown-pt adopted Hx Malignant Hyperthermia No Hx Blood Transfusions No Hx Blood Transfusion Reaction No Anesthesia Review Requested No Bitumastic Applier No alcohol intake current alcohol intake frequency holidays/special occasions only Smoking Status Current every day smoker Tobacco type cannabis/marijuana Substance Use Type marijuana Comment Advised not to smoke marijuana 24 hours prior to surgery Pain Present Pain Reported Musculoskeletal Symptoms Abnormal Gait,Back Pain, Difficulty Walking,Joint Pain, Limited Range of Motion,Muscle Cramps,Muscle Spasms History of Falling (Recent or History of Yes ) Patient is completely paralyzed or No completely immobile Mental Status Oriented to own ability Is patient on oxygen? No Does patient have KIRBY/SOB Yes: w/hurrying up stairs Hx Sleep Apnea No CPAP/BIPAP use not prescribed Suspected Sleep Apnea Yes Currently Taking a Beta Octavio No Can You Climb a Flight of Stairs Without No: Ok if goes slow SOB Hx Chest Pain No Hx SOB Yes Hx Syncope or Dizziness No Anti-Coagulant Therapy No Has a Painter And Body Mechanic Apprentice No Cardiac Testing No Hx Pacemaker/ICD No Pacemaker Rep Required? No Cardiac Clearance Received Not Applicable Diet Type At Home Regular dysphagia No Gastrointestinal Symptoms Reflux Bladder Pattern Nocturia Urinary Catheter Present No Hx Urinary Self Catheterization No Diabetes No Hx Drug Resistant Organism No Presence of External or Internal Medical Yes: screws from ACL repair, Devices Rt knee prosthesis Have you had any close contact with No someone diagnosed with COVID-19? Marital Status Single Lives With significant other Prior Living Arrangements House Support System Significant Other Does the Patient Have Assistance After Yes Surgery Patient Discharge Plan Description Return Home Comment Pt stating wants to stay 2 night length of stay Feels Safe in Current Environment Yes Been Physically Hurt or Threatened By a No Person in Current Environment Do you have thoughts of harming yourself None or others? Are you currently considering suicide? No Do you have a plan to hurt yourself or No Plan others? Do You Have Any Spiritual Beliefs That No May Affect Your HC Choices? Do You Have Any Cultural Practices That No May Affect Your HC Choices? Who Can We Speak to About Patient's Care Family, friends Identifying Code for Release of Patient Declines to issue Information Health Care Proxy/Next of Kin Candy Rojo (S.O.) Health Care Proxy Emergency Contact Name Candy Rojo (S.O.) Emergency Contact Advance Directives? No Power of Gas Leak Inspector No PAC Instructions Nasal antibiotic,No ETOH/ petroleum product on skin DOS, NPO,Pre-surgical wash Comment Unable to complete, pt ended phone conversation Stop Bang Assessment Do you snore loudly (louder than talking No or loud enough to be heard through closed doors) Do you often feel tired, fatigued or Yes: sleeps poorly r/t knee sleepy during the daytime pain Has anyone ever observed you stop Yes breathing while sleeping? Do you have, or are you being treated Yes for, high blood pressure Is your BMI more than 35 kg/m2 Yes Age over 50 Yes Estimated neck circumference greater Yes than 40cm or 16in Gender male Yes Result Positive
== END 2020-06-03 09:46 | disposition home or self-care (01) | DRG 302 ==
PROVIDERS: Admitting Provider Orthopaedic Surgery Adult Reconstructive Orthopaedic Surgery; Referring Provider Orthopaedic Surgery Adult Reconstructive Orthopaedic Surgery; Visit Provider Orthopaedic Surgery Adult Reconstructive Orthopaedic Surgery
PROC: 0SPC0EZ Removal of Articulating Spacer from Right Knee Joint, Open Approach (ICD-10-PCS; principal; 2020-06-02 10:45)
DX: T84.53XA Infection and inflammatory reaction due to internal right knee prosthesis, initial encounter (principal); K21.9 Gastro-esophageal reflux disease without esophagitis
CPT/HCPCS: 36415; 73560; 85014; 85018; 85025; 87070; 87075; 87205; 97161; C1776; J0690; J1100; J1170; J1885; J2250; J2270; J2405; J2704; J2795; J3010; J3410